=== PATIENT | female | born 1965 | race Caucasian/White ===

== ENCOUNTER 2017-01-24 21:32 | Emergency (ER) | payer OTHER, MEDICAID ==
[~2017-01-24] VITALS: Ht 180.3 cm; Wt 80.7 kg
[~2017-01-24 21:32] MED LIST: CIPR-217 PO; DOCU-94 PO; FER325T PO; GABA-494 PO; MORP60TA25 PO; OMEPRAZOLE PO; PERCOT PO; PRO10T PO; WARF10TA PO
[2017-01-24 22:48] LABS: Basophils # (auto) 0.1 uL; Basophils % (auto) 0.6 % (0.0-2.0); Eosinophils # (auto) 0.1 uL; Eosinophils % (auto) 1.2 % (0.0-7.0); Hematocrit 38.5 % (36.0-46.0); Hemoglobin 12.6 g/dL (12.2-16.2); Lymphocytes # (auto) 2.2 uL; Lymphocytes % (auto) 22.7 % (10.0-50.0); Mean Corpuscular Hemoglobin 32.9 pg (28.0-32.0); Mean Corpuscular Hgb Conc. 32.9 g/dL (32.0-36.0); Mean Corpuscular Volume 99.9 fL (80.0-100.0); Monocytes % (auto) 10.1 % (0.0-12.0); Neutrophils # (auto) 6.2 uL; Neutrophils % (auto) 65.4 % (37.0-80.0); Nucleated Red Blood Cells % 0.3 %; Platelet Count (auto) 416 10^3/uL (140-450); Red Blood Cells 3.85 10^6/uL (4.0-5.20); Red Cell Distribution Width 14.2 % (11.8-14.3); White Blood Cell 9.5 10^3/uL (4.4-10.8)
[2017-01-24 23:06] LABS: INR 1.58 (0.9-1.15); Partial Thromboplastin Time 30.1 sec (22.64-33.71); Prothrombin Time 17.3 sec (9.37-12.3)
[2017-01-24 23:14] LABS: Alanine Aminotransferase 51 U/L (13-56); Albumin 1.9 g/dL (3.4-5.0); Alkaline Phosphatase 132 U/L (45-117); Anion Gap 9 (5-15); Aspartate Aminotransferase 26 U/L (15-37); BUN/Creatinine Ratio 30.6; Bilirubin, Total 0.2 mg/dL (0.2-1.0); Blood Urea Nitrogen 22 mg/dL (7-18); Calcium 7.5 mg/dL (8.5-10.1); Carbon Dioxide 28 mmol/L (21-32); Chloride 104 mmol/L (98-107); GFR African American 109 mL/min; GFR Non-African American 90 mL/min; Glucose 123 mg/dL (74-106); Potassium 3.7 mmol/L (3.5-5.1); Sodium 141 mmol/L (136-145); Total Protein 4.5 g/dL (6.4-8.2)
[2017-01-25 02:10] LABS: Urine Bacteria NONE SEEN /hpf (None Seen); Urine Blood Negative /uL (Negative); Urine Mucus FEW (None Seen); Urine Specific Gravity 1.038 (1.001-1.035); Urine WBC <1 /hpf (0 - 5)
[2017-01-25] MEDS ORDERED: FUROSEMIDE 20 MG/2 ML VIAL IV ONE (02:30)
[2017-01-25 04:09] VITALS: BP 101/70
== END 2017-01-25 06:00 | disposition home or self-care (01) ==
LOC: ER 21:37
DX: I50.9 Heart failure, unspecified (principal); F41.9 Anxiety disorder, unspecified; G89.4 Chronic pain syndrome; G89.29 Other chronic pain; M54.9 Dorsalgia, unspecified; Z90.49 Acquired absence of other specified parts of digestive tract; Z90.89 Acquired absence of other organs; Z79.899 Other long term (current) drug therapy; Z88.6 Allergy status to analgesic agent; Z88.2 Allergy status to sulfonamides; Z88.8 Allergy status to other drugs, medicaments and biological substances
CPT/HCPCS: 36415; 70450; 71010; 80053; 81001; 84484; 85025; 85610; 85730; 93005; 96374; 99285; J1940

== ENCOUNTER 2018-12-02 10:40 | Emergency (ER) | payer OTHER, MEDICAID ==
[~2018-12-02] VITALS: Ht 175.3 cm; Wt 79.4 kg
[~2018-12-02 10:40] MED LIST changes: -CIPR-217 PO; -GABA-494 PO; +GABA100C9 PO
[2018-12-02 11:05] VITALS: BP 108/81
== END 2018-12-02 13:25 | disposition home or self-care (01) ==
LOC: ER 10:40
DX: S00.83XA Contusion of other part of head, initial encounter (principal); I11.0 Hypertensive heart disease with heart failure; I50.9 Heart failure, unspecified; Z90.49 Acquired absence of other specified parts of digestive tract; Z86.711 Personal history of pulmonary embolism; Z88.2 Allergy status to sulfonamides; Z88.6 Allergy status to analgesic agent; Z79.899 Other long term (current) drug therapy; W06.XXXA Fall from bed, initial encounter; Y93.84 Activity, sleeping; Y92.092 Bedroom in other non-institutional residence as the place of occurrence of the external cause; Y99.8 Other external cause status
CPT/HCPCS: 70450

== ENCOUNTER 2021-09-30 17:41 | Inpatient (IN) | payer OTHER, MEDICAID ==
[~2021-09-30] VITALS: Ht 172.7 cm; Wt 70.6 kg
[~2021-09-30 17:41] MED LIST changes: +MORP1TAB14 PO; -MORP60TA25 PO; -PRO10T PO; +PROC10TA2 PO
[2021-09-30 19:47] LABS: Basophils # (auto) 0.1 10 ^3/uL (0-0.2); Basophils % (auto) 1.1 % (0.0-2.0); Eosinophils # (auto) 0.1 10 ^3/uL (0-0.8); Eosinophils % (auto) 1.9 % (0.0-7.0); Hematocrit 34.4 % (36.0-46.0); Hemoglobin 10.8 g/dL (12.2-16.2); Lymphocytes # (auto) 1.6 10 ^3/uL (0.4-5.4); Lymphocytes % (auto) 26.8 % (10.0-50.0); Mean Corpuscular Hemoglobin 31.7 pg (28.0-32.0); Mean Corpuscular Hgb Conc. 31.5 g/dL (32.0-36.0); Mean Corpuscular Volume 100.7 fL (80.0-100.0); Monocytes # (auto) 0.5 10 ^3/uL (0-1.3); Monocytes % (auto) 9.1 % (0.0-12.0); Neutrophils # (auto) 3.7 10 ^3/uL (1.6-8.6); Neutrophils % (auto) 61.1 % (37.0-80.0); Nucleated Red Blood Cells % 0.1 %; Red Blood Cells 3.42 10^6/uL (4.0-5.20); Red Cell Distribution Width 14.9 % (11.8-14.3)
[2021-09-30 20:00] LABS: Calcium 7.6 mg/dL (8.5-10.1); Potassium 5.4 mmol/L (3.5-5.1)
[2021-09-30 20:08] LABS: BUN/Creatinine Ratio 43.1; Bilirubin, Total 0.2 mg/dL (0.2-1.0); Total Protein 4.4 g/dL (6.4-8.2)
[2021-09-30 20:25] LABS: Urine WBC None Seen /hpf (0 - 5)
[2021-09-30] MEDS ORDERED: FUROSEMIDE 20 MG/2 ML VIAL IV ONE (20:30)
[2021-09-30] MEDS ORDERED: SODIUM ZIRCONIUM CYCL 10 GM PAK PO ONE (20:30)
[2021-09-30] MEDS ORDERED: ALBUTEROL SULF 2.5 MG/0.5ML(0.5%) NEB SOLN NEB ONE (20:30)
[2021-09-30] MEDS ORDERED: cloNIDine HCL 0.1 MG TAB PO ONE (20:30)
[2021-09-30] MEDS ORDERED: SODIUM BICARBONATE 8.4% INJ 50ML SYRINGE IV ONE (20:30)
[2021-09-30] MEDS ORDERED: CALCIUM GLUC 1,000mg/50ml-NS 50 ML IV ONE (20:30)
[2021-09-30] MEDS ORDERED: SODIUM CHLORIDE 0.9% 1,000 ML IV ONE (20:30)
[2021-09-30 20:51] LABS: Urine Bacteria NONE SEEN /hpf (None Seen); Urine Blood Negative /uL (Negative); Urine Specific Gravity 1.023 (1.001-1.035)
[2021-10-01 08:26] LABS: Basophils # (auto) 0.1 10 ^3/uL (0-0.2); Eosinophils # (auto) 0.1 10 ^3/uL (0-0.8); Eosinophils % (auto) 2.2 % (0.0-7.0); Hematocrit 30.6 % (36.0-46.0); Hemoglobin 9.9 g/dL (12.2-16.2); Lymphocytes # (auto) 1.8 10 ^3/uL (0.4-5.4); Lymphocytes % (auto) 31.9 % (10.0-50.0); Mean Corpuscular Hemoglobin 32.5 pg (28.0-32.0); Mean Corpuscular Hgb Conc. 32.4 g/dL (32.0-36.0); Mean Corpuscular Volume 100.2 fL (80.0-100.0); Monocytes # (auto) 0.6 10 ^3/uL (0-1.3); Monocytes % (auto) 10.1 % (0.0-12.0); Neutrophils # (auto) 3.1 10 ^3/uL (1.6-8.6); Neutrophils % (auto) 54.8 % (37.0-80.0); Nucleated Red Blood Cells % 0.1 %; Red Blood Cells 3.05 10^6/uL (4.0-5.20); Red Cell Distribution Width 14.5 % (11.8-14.3); White Blood Cell 5.7 10^3/uL (4.4-10.8)
[2021-10-01 08:39] LABS: Albumin 1.7 g/dL (3.4-5.0); Calcium 7.5 mg/dL (8.5-10.1); Potassium 4.8 mmol/L (3.5-5.1)
[2021-10-01 08:42] LABS: Bilirubin, Total 0.2 mg/dL (0.2-1.0); Total Protein 3.9 g/dL (6.4-8.2)
[2021-10-01 12:52] LABS: INR 1.03 (0.9-1.15)
[2021-10-01] MEDS: SODIUM CHLORIDE 0.9% 1,000 ML IV SCH (15:21)
[2021-10-01] MEDS ORDERED: TOPI50TA32 PO (18:51)
[2021-10-01] MEDS ORDERED: BACL20TA PO (18:51)
[2021-10-01] MEDS ORDERED: DICL1GEL EX (18:51)
[2021-10-01] MEDS ORDERED: NAP500T PO (18:51)
[2021-10-01] MEDS ORDERED: FENT25DI2 TD (18:51)
[2021-10-01] MEDS ORDERED: HYDR-4072 PO (18:51)
[2021-10-01] MEDS ORDERED: CHOL20007 PO (18:51)
[2021-10-01] MEDS ORDERED: CALCTAB49 PO (18:51)
[2021-10-01] MEDS ORDERED: SPIR100T4 PO (18:51)
[2021-10-01] MEDS ORDERED: ALEN70SO PO (18:51)
[2021-10-01] MEDS ORDERED: MODA200T73 PO (18:51)
[2021-10-01 19:02] VITALS: BP 151/66
[2021-10-01 22:00] VITALS: BP 115/61
[2021-10-02] MEDS ORDERED: MORPHINE SULFATE INJ 2 MG/ml SYRG IV PRN (02:45)
[2021-10-02 05:00] VITALS: BP 123/78
[2021-10-02 06:05] LABS: Basophils # (auto) 0 10 ^3/uL (0-0.2); Eosinophils # (auto) 0.1 10 ^3/uL (0-0.8); Eosinophils % (auto) 3.1 % (0.0-7.0); Hematocrit 31.9 % (36.0-46.0); Hemoglobin 10.3 g/dL (12.2-16.2); Lymphocytes # (auto) 1.1 10 ^3/uL (0.4-5.4); Mean Corpuscular Hemoglobin 32.5 pg (28.0-32.0); Mean Corpuscular Hgb Conc. 32.2 g/dL (32.0-36.0); Mean Corpuscular Volume 100.8 fL (80.0-100.0); Monocytes # (auto) 0.5 10 ^3/uL (0-1.3); Monocytes % (auto) 9.6 % (0.0-12.0); Neutrophils % (auto) 63.3 % (37.0-80.0); Red Blood Cells 3.16 10^6/uL (4.0-5.20); Red Cell Distribution Width 14.6 % (11.8-14.3); White Blood Cell 4.8 10^3/uL (4.4-10.8)
[2021-10-02 06:09] LABS: Calcium 7.5 mg/dL (8.5-10.1); Potassium 5.2 mmol/L (3.5-5.1)
[2021-10-02 06:15] LABS: Albumin 1.7 g/dL (3.4-5.0); BUN/Creatinine Ratio 30.8; Bilirubin, Total 0.2 mg/dL (0.2-1.0); Total Protein 4.1 g/dL (6.4-8.2)
[2021-10-02] MEDS: SODIUM CHLORIDE 0.9% 1,000 ML IV SCH ×2 (07:10→23:50)
[2021-10-02] MEDS: ENOXAPARIN SOD 40 MG/0.4 ML SYRINGE SC SCH (08:38)
[2021-10-02 09:22] VITALS: BP 122/66
[2021-10-02 13:00] VITALS: BP 115/65
[2021-10-02 16:49] VITALS: BP 122/73
[2021-10-02 22:00] VITALS: BP 132/86
[2021-10-03 05:00] VITALS: BP 110/78
[2021-10-03 09:00] VITALS: BP 130/77
[2021-10-03] MEDS: ENOXAPARIN SOD 40 MG/0.4 ML SYRINGE SC SCH (10:53)
[2021-10-03 12:30] VITALS: BP 122/78
[2021-10-03] MEDS: SODIUM CHLORIDE 0.9% 1,000 ML IV SCH (16:30)
[2021-10-03 17:00] VITALS: BP 130/73
[2021-10-03 20:29] VITALS: BP 114/72
[2021-10-03 22:00] VITALS: BP 119/71
[2021-10-04 05:00] VITALS: BP 110/71
[2021-10-04 08:00] VITALS: BP 117/76
[2021-10-04 09:00] VITALS: BP 117/76
[2021-10-04] MEDS: SODIUM CHLORIDE 0.9% 1,000 ML IV SCH (09:10)
[2021-10-04] MEDS: ENOXAPARIN SOD 40 MG/0.4 ML SYRINGE SC SCH (10:16)
[2021-10-04 13:00] VITALS: BP 121/74
[2021-10-04 16:35] VITALS: BP 115/64
[2021-10-04 22:00] VITALS: BP 113/74
[2021-10-05] MEDS: SODIUM CHLORIDE 0.9% 1,000 ML IV SCH (01:50)
[2021-10-05 05:00] VITALS: BP 101/71
[2021-10-05 08:00] VITALS: BP 118/67
[2021-10-05 09:00] VITALS: BP 106/64
[2021-10-05] MEDS: ENOXAPARIN SOD 40 MG/0.4 ML SYRINGE SC SCH (10:00)
[2021-10-05 13:00] VITALS: BP 118/67
[2021-10-05 17:00] VITALS: BP 120/74
== END 2021-10-05 20:30 | DRG 563 ==
LOC: ER 17:41 → OVERFLOW 10-01 14:33 → CENTRAL 10-01 17:25
PROVIDERS: ADMIT Internal Medicine; ATTEND Internal Medicine
DX: S42.301A Unspecified fracture of shaft of humerus, right arm, initial encounter for closed fracture (principal); F03.90 Unspecified dementia, unspecified severity, without behavioral disturbance, psychotic disturbance, mood disturbance, and anxiety; I95.9 Hypotension, unspecified; E83.51 Hypocalcemia; D64.9 Anemia, unspecified; G89.4 Chronic pain syndrome; I11.0 Hypertensive heart disease with heart failure; I50.9 Heart failure, unspecified; R29.6 Repeated falls; M21.921 Unspecified acquired deformity of right upper arm; R62.7 Adult failure to thrive; F41.9 Anxiety disorder, unspecified; G62.9 Polyneuropathy, unspecified; K21.9 Gastro-esophageal reflux disease without esophagitis; Z20.822 Contact with and (suspected) exposure to COVID-19; W18.39XA Other fall on same level, initial encounter; E87.5 Hyperkalemia; Z79.01 Long term (current) use of anticoagulants; Z88.2 Allergy status to sulfonamides; Z88.5 Allergy status to narcotic agent; Z88.8 Allergy status to other drugs, medicaments and biological substances; Z79.899 Other long term (current) drug therapy; Z80.3 Family history of malignant neoplasm of breast; Z81.8 Family history of other mental and behavioral disorders; Z82.3 Family history of stroke; Z82.49 Family history of ischemic heart disease and other diseases of the circulatory system; Z82.5 Family history of asthma and other chronic lower respiratory diseases; Z86.73 Personal history of transient ischemic attack (TIA), and cerebral infarction without residual deficits; Z98.84 Bariatric surgery status; Z94.9 Transplanted organ and tissue status, unspecified; Y93.89 Activity, other specified; Y92.098 Other place in other non-institutional residence as the place of occurrence of the external cause; Y99.8 Other external cause status
CPT/HCPCS: 36415; 70450; 71045; 72125; 73030; 73070; 73200; 80053; 81001; 84484; 85025; 85610; 94640; 96365; 96375; 97163; 99291; G0378

== ENCOUNTER 2022-07-29 15:34 | Emergency (ER) | payer OTHER ==
[~2022-07-29] VITALS: Ht 172.7 cm; Wt 78.2 kg
[~2022-07-29 15:34] MED LIST changes: +ALEN70SO PO; +BACL20TA PO; +CALCTAB49 PO; +CHOL20007 PO; +DICL1GEL EX; +FENT25DI2 TD; +HYDR-4072 PO; +MODA200T73 PO; -MORP1TAB14 PO; +NAP500T PO; -PERCOT PO; -PROC10TA2 PO; +SPIR100T4 PO; +TOPI50TA32 PO; -WARF10TA PO
[2022-07-29] MEDS ORDERED: HYDROmorphone HCL 2 MG/ML VL/or syr IM ONE (18:00)
[2022-07-29 21:20] VITALS: BP 105/66
== END 2022-07-29 21:21 | disposition home or self-care (01) ==
LOC: ER 15:34
DX: S42.401A Unspecified fracture of lower end of right humerus, initial encounter for closed fracture (principal); M54.59 Other low back pain; R07.81 Pleurodynia; I11.0 Hypertensive heart disease with heart failure; I50.9 Heart failure, unspecified; F41.9 Anxiety disorder, unspecified; Z86.711 Personal history of pulmonary embolism; Z88.5 Allergy status to narcotic agent; Z88.2 Allergy status to sulfonamides; Z88.8 Allergy status to other drugs, medicaments and biological substances; W01.198A Fall on same level from slipping, tripping and stumbling with subsequent striking against other object, initial encounter; Y93.89 Activity, other specified; Y92.89 Other specified places as the place of occurrence of the external cause; Y99.8 Other external cause status
CPT/HCPCS: 71101; 72100; 73030; 73060; 73080; 73090; 96372; 99284; J1170; 29105

== ENCOUNTER 2022-09-07 22:46 | Emergency (ER) | payer OTHER ==
[~2022-09-07] VITALS: Ht 172.7 cm; Wt 165.0 kg
[~2022-09-07 22:46] MED LIST changes: -ALEN70SO PO; +ALEN70SO2 PO; +GABA-1308 PO; -GABA100C9 PO
[2022-09-08] MEDS ORDERED: ACETAMINOPHEN 325 MG TAB PO ONE (05:45)
[2022-09-08 06:47] LABS: Basophils # (auto) 0 10 ^3/uL (0-0.2); Basophils % (auto) 0.6 % (0.0-2.0); Eosinophils # (auto) 0 10 ^3/uL (0-0.8); Eosinophils % (auto) 1.3 % (0.0-7.0); Hematocrit 37.6 % (36.0-46.0); Hemoglobin 12.3 g/dL (12.2-16.2); Lymphocytes # (auto) 0.7 10 ^3/uL (0.4-5.4); Lymphocytes % (auto) 19.8 % (10.0-50.0); Mean Corpuscular Hemoglobin 30.1 pg (28.0-32.0); Mean Corpuscular Hgb Conc. 32.8 g/dL (32.0-36.0); Monocytes # (auto) 0.3 10 ^3/uL (0-1.3); Monocytes % (auto) 9.7 % (0.0-12.0); Neutrophils # (auto) 2.5 10 ^3/uL (1.6-8.6); Neutrophils % (auto) 68.6 % (37.0-80.0); Red Blood Cells 4.09 10^6/uL (4.0-5.20); Red Cell Distribution Width 14.3 % (11.8-14.3); White Blood Cell 3.6 10^3/uL (4.4-10.8)
[2022-09-08 07:05] LABS: Calcium 8.1 mg/dL (8.5-10.1); Potassium 3.9 mmol/L (3.5-5.1)
[2022-09-08 07:12] LABS: Albumin 3.1 g/dL (3.4-5.0); Bilirubin, Total 0.4 mg/dL (0.2-1.0); Total Protein 6.8 g/dL (6.4-8.2)
[2022-09-08] MEDS ORDERED: CYCLOBENZAPRINE HCL 10 MG TAB PO ONE (07:15)
[2022-09-08] MEDS ORDERED: KETOROLAC TROMETH 30 MG/ML 1ML VIAL IV ONE (07:15)
[2022-09-08 08:50] LABS: Urine Bacteria NONE SEEN /hpf (None Seen); Urine Blood Negative /uL (Negative); Urine Mucus FEW (None Seen); Urine Specific Gravity 1.017 (1.001-1.035); Urine WBC <1 /hpf (0 - 5)
[2022-09-08 10:20] VITALS: BP 138/75
== END 2022-09-08 10:21 | disposition home or self-care (01) ==
LOC: ER 22:46
DX: G89.29 Other chronic pain (principal); M54.59 Other low back pain; F41.9 Anxiety disorder, unspecified; I11.0 Hypertensive heart disease with heart failure; I50.89 Other heart failure; Z98.890 Other specified postprocedural states; Z88.5 Allergy status to narcotic agent; Z88.2 Allergy status to sulfonamides; Z88.8 Allergy status to other drugs, medicaments and biological substances; Z90.49 Acquired absence of other specified parts of digestive tract; Z90.89 Acquired absence of other organs
CPT/HCPCS: 36415; 72132; 80053; 81001; 85025; 96374; 99285; J1885

== ENCOUNTER 2023-08-31 06:51 | Emergency (ER) | payer OTHER, MEDICAID ==
[~2023-08-31] VITALS: Ht 172.7 cm; Wt 72.0 kg
[2023-08-31 07:33] VITALS: BP 119/85; PULSE 85; RESP 20; TEMP 98.5; O2SAT 98
[2023-08-31] MEDS: diphenhdrAMINE HCL 50 MG/1 ML VL IV ONE (08:45)
[2023-08-31] MEDS: KETOROLAC TROMETH 30 MG/ML 1ML VIAL IV ONE (08:45)
[2023-08-31] MEDS: PROCHLORPERAZINE EDISYLATE 5 MG/ML 2ML VIAL IV ONE (08:45)
[2023-08-31] MEDS: SODIUM CHLORIDE 0.9% 1,000 ML IV ONE (08:55)
[2023-08-31] MEDS: DexAMETHasone SOD PHOS 10MG/1ML VIAL INJ IV ONE (10:15)
[2023-08-31] MEDS ORDERED: MAGN400T40 PO (10:16)
== END 2023-08-31 10:56 | disposition home or self-care (01) ==
LOC: ER 06:51
DX: G43.909 Migraine, unspecified, not intractable, without status migrainosus (principal); H11.32 Conjunctival hemorrhage, left eye; M19.90 Unspecified osteoarthritis, unspecified site; F41.9 Anxiety disorder, unspecified; I11.0 Hypertensive heart disease with heart failure; I50.9 Heart failure, unspecified; Z90.49 Acquired absence of other specified parts of digestive tract; Z90.89 Acquired absence of other organs
CPT/HCPCS: 70450; 96361; 96374; 96375; 99285; J0780; J1100; J1200; J1885; J7030

== ENCOUNTER 2024-03-15 16:53 | Inpatient (IN) | payer OTHER, MEDICAID ==
[~2024-03-15] VITALS: Ht 175.3 cm; Wt 80.1 kg
[~2024-03-15 16:53] MED LIST changes: +MAGN400T40 PO
--- NOTE | 2024-03-15 17:39 | ED.PDOC ---
HPI (NEURO) HPI Comments 58y F who presents to the ED via EMS for chief complaint of confusion. Per pt, pt states she woke up in the afternoon approx 1:30 PM and states felt confused and was unable to have a conversation with her son and states she was unable to answer simple questions. Pt son got worried and noted pt started to get chills and felt she was having trouble communicating and called pt daughters and states they told son to call EMS. EMS arrived on scene and after doing EKG, found it was abnormal with tachycardia and PVC's and brought pt to the ED. Pt in the ED, has heart rate of 145 and pt is noted to be febrile. Pt is now in the ED, noted alert and oriented x 4 and able to answer all questions and now denies any changes in vision, speech or gait. Pt otherwise denies any recent fall or injury. Pt otherwise denies any other symptoms at this time. Chief Complaint: Confusion Time Seen by MD: 17:34 Primary Care Provider: FÉLIX Dickerson Notes: Institution Librarian Notes, Medications, Allergies (see list ) Information Source: Patient Mode of Arrival: EMS Brought in by: EMS Severity: Moderate Dizziness/Weakness Severity: Unable to do activities Headache Severity: Moderate Timing: Hours Duration: Since onset Prehospital treatment: None Weakness Location: Generalized Onset: At rest Circumstances: Spontaneous Symptoms: Weakness, Difficult speech History of: Hypertension Modifying factors: Nothing Associated Signs and Symptoms: Weakness Past Medical History PAST MEDICAL HISTORY: Anxiety, Arthritis, CHF, HTN, PE Surgical History: Appendectomy, Cholecystectomy, Tonsillectomy Surgical History (Other): lumbar fusion, R knee surgery WET PAN OPERATOR History: No Pertinent WET PAN OPERATOR History Family History Family History: No family hx of HTN Social History Smoker: Non-Smoker Alcohol: Rarely Drugs: Denies Drug Use Lives In: Home Constitutional: denies: chills, diaphoresis, fatigue, fever, malaise, sweats, weakness, others EENTM: denies: blurred vision, double vision, ear bleeding, ear discharge, ear drainage, ear pain, ear ringing, eye pain, eye redness, hearing loss, mouth pain, mouth swelling, nasal discharge, nose bleeding, nose congestion, nose pain, photophobia, tearing, throat pain, throat swelling, voice changes, others Respiratory: denies: cough, hemoptysis, orthopnea, SOB at rest, shortness of breath, SOB with excertion, stridor, wheezing, others Cardiovascular: denies: chest pain, dizzy spells, diaphoresis, Dyspnea on exertion, edema, irregular heart beat, left arm pain, lightheadedness, palpitations, PND, syncope, others Gastrointestinal: denies: abdomen distended, abdominal pain, blood streaked bowels, constipated, diarrhea, dysphagia, difficulty swallowing, hematemesis, melena, nausea, poor appetite, poor fluid intake, rectal bleeding, rectal pain, vomiting, others Genitourinary: denies: abnormal vagina bleeding, burning, dyspareunia, dysuria, flank pain, frequency, hematuria, incontinence, pain, , vagina discharge, urgency, others Neurological: reports: weakness; denies: dizziness, fainting, headache, left sided numbness, left sided weakness, numbness, paresthesia, pre-existing deficit, right sided numbness, right sided weakness, seizure, speech problems, tingling, tremors, others Musculoskeletal: denies: back pain, gout, joint pain, joint swelling, muscle pain, muscle stiffness, neck pain, others Integumetry: denies: bruises, change in color, change in hair/nails, dryness, laceration, lesions, lumps, rash, wounds, others Allergic/Immunocompromised: denies: Difficulty Healing, Frequent Infections, Hives, Itching, others Hematologic/Lymphatic: denies: anemia, blood clots, easy bleeding, easy bruising, swollen glands, others Endocrine: denies: excessive hunger, excessive sweating, excessive thirst, excessive urination, flushing, intolerance to cold, intolerance to heat, unexplained weight gain, unexplained weight loss, others Psychiatric: denies: anxiety, bipolar disorder, depression, hopeless, panic disorder, schizophrenia, sleepless, suicidal, others All Other Systems: Reviewed and Negative Physical Exam General Appearance: Moderate Distress HEENT: Normal ENT Inspection, Pharynx Normal, TMs Normal Neck: Full Range of Motion, Non-Tender, Normal, Normal Inspection Respiratory: Chest Non-Tender, No Accessory Muscle Use, Respiratory Distress, Rhonchi Cardiovascular: No Edema, No JVD, No Murmur, No Gallop, Normal Peripheral Pulses, Regular Rate/Rhythm Breast Exam: Deferred Gastrointestinal: No Organomegaly, Non Tender, No Pulsatile Mass, Normal Bowel Sounds, Soft Genitalia: Deferred Pelvic: Deferred Rectal: Deferred Extremities: No calf tenderness, Normal capillary refill, Normal inspection, Normal range of motion, Non-tender, No pedal edema Musculoskeletal : Location: Bilateral Extremity Location: Back Apperance: Limited ROM, Tenderness: Moderate Neurologic: Alert, burnisher II-XII nml as Tested, Motor Weakness, Normal Affect, Normal Mood, No Sensory Deficits Cerebellar Function: Normal Reflexes: Normal Skin: Dry, Normal Color, Warm Lymphatic: No Adenopathy EKG EKG : Pulse Rate (adult): 120 [place]: Normal Cardiac Rhythm: ST Block: None Hypertrophy: None ST: Normal Was a procedure done? Was a procedure done?: No Differential Diagnosis (SZ) CVA: CVA, Electrolyte Imbalance, Encephalopathy, Hypoglycemia, SAH, TIA General Weakness: Anemia, CVA, Electrolyte imbalance, Encephalopathy, Hypoglycemia, Hypotension, Hypovolemia, TIA, Vertigo: central, Vertigo: peripheral X-Ray, Labs, Meds, VS Vital Signs Date Time Temp Pulse Resp B/P (MAP) Pulse Ox O2 Delivery O2 Flow Rate FiO2 03/15/24 20:00 120 22 103/62 (76) 91 03/15/24 18:05 129 21 94 Nasal Cannula* 2 28 03/15/24 18:00 99.6 122 18 111/68 (82) 94 99.6 03/15/24 17:50 120 03/15/24 17:45 129 03/15/24 17:43 102.3 126 22 120/88 (99) 95 102.3 03/15/24 16:57 100.5 145 22 135/110 (118) 95 03/15/24 16:57 139 Lab Test 03/15/24 18:03 Range/Units White Blood Count 13.6 H 4.4-10.8 10^3/uL Red Blood Count 4.53 4.0-5.20 10^6/uL Hemoglobin 13.8 12.2-16.2 g/dL Hematocrit 42.1 36.0-46.0 % Mean Corpuscular Volume 93.1 80.0-100.0 fL Mean Corpuscular Hemoglobin 30.4 28.0-32.0 pg Mean Corpuscular Hemoglobin Concent 32.6 32.0-36.0 g/dL Red Cell Distribution Width 14.5 H 11.8-14.3 % Platelet Count 299 140-450 10^3/uL Mean Platelet Volume 8.7 6.9-10.8 fL Neutrophils (%) (Auto) 37.0-80.0 % Lymphocytes (%) (Auto) 10.0-50.0 % Monocytes (%) (Auto) 0.0-12.0 % Basophils (%) (Auto) 0.0-2.0 % Neutrophils # (Auto) 1.6-8.6 10 ^3/uL Lymphocytes # (Auto) 0.4-5.4 10 ^3/uL Monocytes # (Auto) 0-1.3 10 ^3/uL Differential Total Cells Counted 100.0 100 Neutrophils % (Manual) 67 37.0-80.0 Band Neutrophils % (Manual) 26 Lymphocytes % (Manual) 3 L 10.0-50.0 Monocytes % (Manual) 4 0-12 Eosinophils % (Manual) 0 0-7 Basophils % (Manual) 0 0.0-2.0 Metamyelocytes % (manual) 0 Myelocytes % (Manual) 0 Promyelocytes % (Manual) 0 Blast Cells % (Manual) 0 Reactive Lymphocytes 0 Platelet Estimate Adequate Red Blood Cell Morphology Normal Sodium Level 142 136-145 mmol/L Potassium Level 3.6 3.5-5.1 mmol/L Chloride Level 112 H 98-107 mmol/L Carbon Dioxide Level 19 L 20-31 mmol/L Anion Gap 11 5-15 Blood Urea Nitrogen 27 H 9-23 mg/dL Creatinine 0.60 0.550-1.02 mg/dL Glomerular Filtration Rate Calc 103 >90 mL/min BUN/Creatinine Ratio 45.0 H 10.0-20.0 Serum Glucose 106 74-106 mg/dL Lactic Acid Level 0.9 0.4-2.0 mmol/L Calcium Level 9.2 8.7-10.4 mg/dL Plasma/Serum Blood Alcohol < 3.0 <10 mg/dL Current Medications Medications (Trade) Dose Ordered Sig/Debi Route Start Time Stop Time Status Last Admin Vancomycin HCl 250 ml @ 250 mls/hr ONCE ONCE IV 03/15/24 19:30 03/15/24 20:29 DC 03/15/24 19:51 IV Hep-Lock was established The chest x-ray shows: IMPRESSION: Patchy opacification in the right lower lung zone with potential focal central area of low opacification. This is likely due to developing airspace disease and less likely complex infection involving potential pulmonary abscess. Left lung is clear. No pneumothorax. Chronic appearing deformity of the right humeral head. CT scan of the head shows: No sign of any abnormalities The CT scan of the chest shows: Impression: 1. Multifocal groundglass opacities favor an infectious/inflammatory etiology versus atelectasis. The patient was started on vancomycin and azithromycin The CBC shows an elevated white blood cell count of 13.6 The rest of the CBC is within normal limits The chemistry panel is within normal limits We spoke to the [facility] physician and he will come and evaluate this patient's The patient will be signed over to him for final disposition. Images Reviewed?: Images reviewed and evaluated by me Time of 1ST Reevaluation: 18:05 Reevaluation 1ST: Unchanged Patient Education/Counseling: Diagnosis, Treatment, Prognosis Family Education/Counseling: No Family Present Additional Information I reviewed the following notes from patient's past medical encounters: The following tests were ordered, and results were reviewed by me: CBC, UA, chest x-ray, CT head without contrast, orthostatics, EKG, blood alcohol, BMP Additional Information was gathered from interviewing the following independent historians: EMS I reviewed and agreed with the following test results read by other providers: radiologist I discussed treatment and results with medical personnel and: patient Departure 1 Departure Time of Disposition: 21:38 Impression: Primary Impression: Acute respiratory failure Qualified Codes: J96.01 - Acute respiratory failure with hypoxia Additional Impression: Bilateral pneumonia Qualified Codes: J18.9 - Pneumonia, unspecified organism Disposition: ADMITTED INPATIENT Admit to: Tele Condition: Fair Critical Care Note Critical Care Time?: Yes (35 min-critical care time only) Stability Stability form required: Yes Unstable for transfer: Telemetry monitoring (Telemetry monitoring required), ED Physician Assesment (Clinical assesment) Heart Score Heart Score: Heart Score Response (Comments) Value History N/A 0 EKG N/A 0 Age N/A 0 Risk Factors N/A 0 Troponin N/A 0 Total 0 I personally scribed for LEVON GARCIA MD ([email or web address]) on 03/15/24 at 17:39. Electronically submitted by Tracy Eugene ([email or web address]). I personally scribed for LEVON GARCIA MD ([email or web address]) on 03/15/24 at 17:50. Electronically submitted by Tracy Eugene (KJ). LEVON GARCIA MD Mar 15, 2024 17:39
[2024-03-15 18:05] VITALS: PULSE 129; RESP 21; O2SAT 94
--- NOTE | 2024-03-15 18:57 | DVH ---
CHEST RADIOGRAPH Indication: aloc Technique: Single frontal view of the chest was obtained Comparison: CXRP on DOS: 09/30/21, CHEST PORTABLE on DOS: 09/30/21 Findings/ IMPRESSION: Patchy opacification in the right lower lung zone with potential focal central area of low opacificat ion. This is likely due to developing airspace disease and less likely complex infection involving po tential pulmonary abscess. Left lung is clear. No pneumothorax. Chronic appearing deformity of the ri ght humeral head.
[2024-03-15 19:04] LABS: Hematocrit 42.1 % (36.0-46.0); Hemoglobin 13.8 g/dL (12.2-16.2); Mean Corpuscular Hemoglobin 30.4 pg (28.0-32.0); Mean Corpuscular Hgb Conc. 32.6 g/dL (32.0-36.0); Mean Corpuscular Volume 93.1 fL (80.0-100.0); Platelet Count (auto) 299 10^3/uL (140-450); Red Blood Cells 4.53 10^6/uL (4.0-5.20); Red Cell Distribution Width 14.5 % (11.8-14.3); White Blood Cell 13.6 10^3/uL (4.4-10.8)
--- NOTE | 2024-03-15 19:05 | DVH ---
EXAM: CT HEAD WITHOUT CONTRAST HISTORY: aloc COMPARISON: CT HEAD WITHOUT CONTRAST on DOS: 08/31/23, CT LS SPINE W CONTRAST on DOS: 09/08/22, CT R SLAVA ULDER WO CONTRAST on DOS: 10/01/21 TECHNIQUE: Axial images were obtained and reformatted in coronal and sagittal planes. All CT scans at this medical facility are performed using dose modulation techniques as appropriate t o a performed exam including the following: Automated exposure control was utilized; adjustment of th e MA and/or KV according to patient size; and use of iterative reconstruction technique. CT Dose: CTDI volume is 49.61 mGy. Dose-length product is 795.5 mGy*cm FINDINGS: Supratentorial Region: No evidence for large acute territorial ischemia. No intracranial hemorrhage is noted. Posterior Fossa: No acute abnormality. Brainstem: Unremarkable. Sellar/Suprasellar Region: Unremarkable. Ventricles, Cisterns, Sulci: Age-appropriate. Orbits: Unremarkable. Paranasal Sinuses: Unremarkable. Mastoid Air Cells: Unremarkable. Vasculature: Unremarkable. Bones/Soft Tissues: No acute abnormality. Other: None. IMPRESSION: 1. No acute intracranial process.
[2024-03-15 19:13] LABS: Basophils % (manual) 0 (0.0-2.0); Blast Cells 0; Eosinophils % (manual) 0 (0-7); Metamyelocytes % 0; Myelocytes % 0; Promyelocytes % 0; Reactive Lymphocytes 0
[2024-03-15 19:32] LABS: Calcium 9.2 mg/dL (8.7-10.4); Potassium 3.6 mmol/L (3.5-5.1); Sodium 142 mmol/L (136-145)
[2024-03-15 19:33] LABS: Anion Gap 11 (5-15)
[2024-03-15 19:38] LABS: Glucose 106 mg/dL (74-106)
[2024-03-15 19:41] LABS: Blood Alcohol < 3.0 mg/dL (<10); Blood Urea Nitrogen 27 mg/dL (9-23); Carbon Dioxide 19 mmol/L (20-31); Chloride 112 mmol/L (98-107)
[2024-03-15 19:51] LABS: Band Neutrophils % (manual) 26; Lymphocytes % (manual) 3 (10.0-50.0); Monocytes % (manual) 4 (0-12); Platelet Estimate Adequate; RBC Morphology Normal
[2024-03-15] MEDS: VANCOMYCIN 1GM/250ML KIT 250 ML IV ONE (19:51)
[2024-03-15 20:00] VITALS: PULSE 120; RESP 22; O2SAT 91
--- NOTE | 2024-03-15 21:29 | DVH ---
EXAM: CT CHEST WITHOUT CONTRAST History: pain Comparison Study: CT HEAD WITHOUT CONTRAST on DOS: 03/15/24, CT HEAD WITHOUT CONTRAST on DOS: 08/31/23, CT R SHOULDER WO CONTRAST on DOS: 10/01/21 TECHNIQUE: Multidetector CT of the chest was performed. Imaging was performed without IV contrast. Ax ial, coronal, and sagittal multiplanar reformats were obtained from the axial data set by the technol ogist. Radiation Dose : CTDI vol 12.15 mGy, DLP 423.55 mGy*cm. Findings: Lungs: Bilateral lower lobe and inferior right upper lobe groundglass opacities. Pleura: Unremarkable Heart/Great vessels: The visualized heart is unremarkable. No cardiomegaly or pericardial effusion. Mediastinum: Unremarkable Soft tissues/Bones: Unremarkable Cholecystectomy. Postsurgical changes of the stomach. The remaining partially visualized upper abdome n is within normal limits. Impression: 1. Multifocal groundglass opacities favor an infectious/inflammatory etiology versus atelectasis.
[2024-03-15 22:14] LABS: Urine Bacteria None Seen /hpf (None Seen)
[2024-03-15] MEDS ORDERED: DOCUSATE SOD 100 MG CAP PO PRN (22:30)
[2024-03-15] MEDS ORDERED: ONDANSETRON HCL 4 MG/2 ML VIAL IV PRN (22:30)
[2024-03-15] MEDS ORDERED: ACETAMINOPHEN 325 MG TAB PO PRN (22:30)
[2024-03-15] MEDS ORDERED: MORPHINE SULFATE INJ 2 MG/ml SYRG IV PRN (22:30)
[2024-03-15] MEDS ORDERED: NITROGLYCERIN 0.4 MG SL TAB SL PRN (22:30)
[2024-03-15] MEDS: SODIUM CHLORIDE 0.9% 1,000 ML IV ONE (22:47)
[2024-03-15 23:08] LABS: Urine Blood Negative /uL (Negative); Urine Clarity Turbid (Clear); Urine Color Yellow (Yellow); Urine Hyaline Cast FEW /lpf (0 - 2); Urine Mucus FEW (None Seen); Urine Protein, UAD TRACE (Negative); Urine Specific Gravity 1.034 (1.001-1.035); Urine Urobilinogen 2 mg/dL (Negative); Urine WBC 3 /hpf (0 - 5)
[2024-03-15] MEDS: levoFLOXacin 500MG 100 ML IV ONE (23:25)
[2024-03-15 23:38] LABS: COVID19 ANTIGEN SOFIA FIA NEGATIVE (NEGATIVE)
[2024-03-15] MEDS: cefTRIAXone 1GM/50ML D5W 50 ML IV ONE (23:52)
[2024-03-16] VITALS (15 sets, daily range): BP systolic 93; BP diastolic 66; PULSE 77–105; RESP 14–19; O2SAT 78–99
[2024-03-16] MEDS: AZITHROMYCIN 500MG/ 250ML 250 ML IV ONE (01:35)
[2024-03-16] MEDS: IPRATROPIUM BROM 0.5 MG/2.5ML INH SOL NEB SCH (01:48)
[2024-03-16] MEDS: ALBUTEROL SULF 2.5 MG/0.5ML(0.5%) NEB SOLN NEB SCH (01:49)
--- NOTE | 2024-03-16 02:04 | DVHHP2 ---
PATRICK RANKIN STEWARD/STEWARDESS BATH 03/16/24 0204: History of Present Illness Reason for Visit: AMS History of Present Illness 58-year-old female presents with complaints of alter mental status, Fevers, chills. EMS was called because the patient was confused And unable to hold a conversation with family members.. Found To be febrile With elevated heart rate in the 140s. In route to the hospital patient was also found to be hypoxic Requiring supplemental oxygen 4lnc to Maintain oxygen saturation 94%.. At this time patient is alert and oriented x3. Patient denies any Unilateral deficits, headaches, slurred speech, Chest pain, nausea, vomiting, Abdominal pain Cardiovascular: CHF Pulmonary: Pulmonary embolus Psych: Anxiety, Bipolar, Depression Smoke: No ALCOHOL: none Drugs: None Lives: with Family Review of Systems Constitutional: Yes: Fever, Chills, Weakness Eyes: No: Pain, Vision change, Conjunctivae inflammation, Eyelid inflammation, Other, Redness ENT: No: Ear pain, Ear discharge, Nose pain, Nose discharge, Nose congestion, Mouth pain, Mouth swelling, Throat pain, Throat swelling, Other Respiratory: Shortness of breath; No: Cough, Dry, SOB with excertion, Wheezing, Hemoptysis, Pleuritic Pain, Sputum, Wheezing, Other Cardiovascular: No: Chest Pain, Palpitations, Orthopnea, Paroxysmal Noc. Dyspnea, Edema, Lt Headedness, Other Gastrointestinal: No: Nausea, Vomiting, Abdominal Pain, Diarrhea, Constipation, Melena, Hematochezia, Other Genitourinary: No Dysuria, No Frequency, No Incontinence, No Hematuria, No Retention, No Other Musculoskeletal: No: other, neck pain, shoulder pain, arm pain, back pain, hand pain, leg pain, foot pain Skin: No: Rash, Lesions, Jaundice, Bruising, Other Neurological: Confusion; No: Weakness, Numbness, Incoordination, Change in speech, Seizures, Other Allergies: Coded Allergies: Codeine (Verified Allergy, Severe, RASH, 08/05/14) Meperidine (Verified Allergy, Severe, RASH, 08/07/14) Sulfa Antibiotics (Verified Allergy, Intermediate, RASH, 08/04/15) Propoxyphene (Verified Allergy, Unknown, 02/01/15) Medications Current Medications Medications Dose Ordered Sig/Debi Route Start Time Stop Time Status Last Admin Dose Admin Docusate Sodium 100 mg BIDPRN PRN PO 03/15/24 22:30 Acetaminophen 650 mg Q6HP PRN PO 03/15/24 22:30 Ondansetron HCl 4 mg Q4HP PRN IV 03/15/24 22:30 Enoxaparin Sodium 40 mg DAILY SC 03/16/24 10:00 Nitroglycerin 0.4 mg Q5MINP PRN SL 03/15/24 22:30 Morphine Sulfate 2 mg Q30M PRN IV 03/15/24 22:30 Levofloxacin/ Dextrose 100 ml @ 100 mls/hr DAILY IV 03/16/24 10:00 Oxycodone/ Acetaminophen 1 tab Q4HPRN PRN PO 03/15/24 22:30 Albuterol 2.5 mg Q4HR NEB 03/16/24 02:00 03/16/24 01:49 2.5 MG Ipratropium [place] 0.5 mg Q4HR NEB 03/16/24 02:00 03/16/24 01:48 0.5 MG Exam Vital Signs Vital Signs Date Time Temp Pulse Resp B/P (MAP) Pulse Ox O2 Delivery O2 Flow Rate FiO2 03/16/24 01:49 97 Nasal Cannula 2.0 03/16/24 01:49 28 03/16/24 01:49 77 14 03/16/24 00:45 93/66 03/15/24 18:00 99.6 99.6 General Appearance: Alert, Oriented X3, Cooperative, mild distress HEENT: Atraumatic, PERRLA, EOMI Respiratory: Normal air movement, Other (Right lower lobe rales / crackles) Cardiovascular: Regular rate, Normal S1, Normal S2 Abdominal: Normal bowel sounds, Soft, No tenderness Extremities: No clubbing, No cyanosis, No edema Skin: No rashes Neuro: Normal speech, Strength at 5/5 X4 ext Psych/Mental Status: Mental status NL, Mood NL Labs/Xrays Labs Test 03/15/24 22:47 03/15/24 21:06 03/15/24 18:03 Range/Units SARS-CoV-2 Antigen (Rapid) Negative NEGATIVE Urine Color Yellow Yellow Urine Clarity Turbid H Clear Urine pH 5.0 5.0-9.0 Urine Specific [place] 1.034 1.001-1.035 Urine Protein Trace H Negative Urine Ketones Trace Negative Urine Blood Negative Negative /uL Urine Nitrite Negative Negative Urine Bilirubin Negative Negative Urine Urobilinogen 2 H Negative mg/dL Urine Leukocyte Esterase Trace Negative /uL Urine RBC 2 0 - 4 /hpf Urine WBC 3 0 - 5 /hpf Urine Squamous Epithelial Cells Few <5 /hpf Urine Bacteria None seen None Seen /hpf Urine Hyaline Casts Few 0 - 2 /lpf Urine Mucus Few None Seen Urine Glucose Normal Normal mg/dL White Blood Count 13.6 H 4.4-10.8 10^3/uL Red Blood Count 4.53 4.0-5.20 10^6/uL Hemoglobin 13.8 12.2-16.2 g/dL Hematocrit 42.1 36.0-46.0 % Mean Corpuscular Volume 93.1 80.0-100.0 fL Mean Corpuscular Hemoglobin 30.4 28.0-32.0 pg Mean Corpuscular Hemoglobin Concent 32.6 32.0-36.0 g/dL Red Cell Distribution Width 14.5 H 11.8-14.3 % Platelet Count 299 140-450 10^3/uL Mean Platelet Volume 8.7 6.9-10.8 fL Neutrophils (%) (Auto) 37.0-80.0 % Lymphocytes (%) (Auto) 10.0-50.0 % Monocytes (%) (Auto) 0.0-12.0 % Basophils (%) (Auto) 0.0-2.0 % Neutrophils # (Auto) 1.6-8.6 10 ^3/uL Lymphocytes # (Auto) 0.4-5.4 10 ^3/uL Monocytes # (Auto) 0-1.3 10 ^3/uL Differential Total Cells Counted 100.0 100 Neutrophils % (Manual) 67 37.0-80.0 Band Neutrophils % (Manual) 26 Lymphocytes % (Manual) 3 L 10.0-50.0 Monocytes % (Manual) 4 0-12 Eosinophils % (Manual) 0 0-7 Basophils % (Manual) 0 0.0-2.0 Metamyelocytes % (manual) 0 Myelocytes % (Manual) 0 Promyelocytes % (Manual) 0 Blast Cells % (Manual) 0 Reactive Lymphocytes 0 Platelet Estimate Adequate Red Blood Cell Morphology Normal Sodium Level 142 136-145 mmol/L Potassium Level 3.6 3.5-5.1 mmol/L Chloride Level 112 H 98-107 mmol/L Carbon Dioxide Level 19 L 20-31 mmol/L Anion Gap 11 5-15 Blood Urea Nitrogen 27 H 9-23 mg/dL Creatinine 0.60 0.550-1.02 mg/dL Glomerular Filtration Rate Calc 103 >90 mL/min BUN/Creatinine Ratio 45.0 H 10.0-20.0 Serum Glucose 106 74-106 mg/dL Lactic Acid Level 0.9 0.4-2.0 mmol/L Calcium Level 9.2 8.7-10.4 mg/dL Plasma/Serum Blood Alcohol < 3.0 <10 mg/dL Assessment/Plan Assessment/Plan Acute Hypoxia Bilateral pneumonia Altered mental status, improved Acute kidney injury Plan Admit telemetry Pulmonology consult. Bronchodilators. Supplemental O2 to maintain oxygen saturation greater than 93%. IV ABX Monitor BMP. Trend BUN / creatinine. GI ppx protonix / DVT ppx lovenox Plan discussed with: Patient, Daughter My Orders Orders - PATRICK RANKIN NP Procedure Category Date Status Time Admit ADMIT 03/15/24 Transmitted 22:21 Code Status CODE 03/15/24 Transmitted 22:21 Vital Signs [facility] 03/15/24 In Process 22:21 Review Orders With [facility] 03/15/24 In Process Adm. 22:21 Encourage Activity As [facility] 03/15/24 In Process Tolerate 22:21 Consistent DIET 03/16/24 Transmitted Carb(Ccho)Diabetes Breakfast Oxygen By Face Mask RT 03/15/24 Transmitted 22:21 Docusate Sodium [facility] 03/15/24 In Process Capsule (Colace 22:30 Acetaminophen Tablet PHA 03/15/24 In Process (Tylenol Tablet) 22:30 Notify Of Changes [facility] 03/15/24 In Process From Base 22:21 Advance Directive [facility] 03/15/24 In Process 22:21 Basic Metabolic Panel LAB 03/16/24 Logged 05:00 Basic Metabolic Panel LAB 03/17/24 Verified 05:00 Basic Metabolic Panel LAB 03/18/24 Verified 05:00 Complete Blood Count LAB 03/16/24 Logged 05:00 Complete Blood Count LAB 03/17/24 Verified 05:00 Complete Blood Count LAB 03/18/24 Verified 05:00 Patient Condition ORDERS 03/15/24 Transmitted 22:21 Allergies LIA 03/15/24 In Process 22:21 Ondansetron Hcl PHA 03/15/24 In Process (Zofran) 22:30 Enoxaparin Sodium PHA 03/16/24 In Process (Lovenox) 10:00 Sequential LIA 03/15/24 In Process Compression Device Nitroglycerin PHA 03/15/24 In Process Sublingual (Ntrostat 22:30 Morphine Sulfate PHA 03/15/24 In Process Injection 22:30 Stat Ekg For Chest LIA 03/15/24 In Process Pain 22:21 Notify Md Of Changes LIA 03/15/24 In Process From Base 22:21 Lpn For LIA 03/15/24 In Process 24 Hours 22:21 Emergency Dysrhythmia LIA 03/15/24 In Process Protocol 22:21 Rhythm Strips Once LIA 03/15/24 In Process Every Shift 22:21 Oxygen By Nasal RT 03/15/24 Transmitted Cannula 22:21 Levofloxacin 500mg PHA 03/16/24 In Process (Levaquin 500mg/ 100m 10:00 Oxycodone W/ Acet PHA 03/15/24 In Process 5/325mg Tab (Percocet 22:30 Albuterol Medneb PHA 03/16/24 In Process (Ventolin Medneb) 02:00 Ipratropium Medneb PHA 03/16/24 In Process (Atrovent Medneb) 02:00 *Consult CONS 03/15/24 Transmitted / 22:21 Sodium Chloride 0.9% PHA 03/15/24 In Process 22:45 Date of Service: Mar 16, 2024 Billing Provider: TRU PEREZ MD Common Visit Codes: NOT BILLABLE TRU PEREZ MD 03/16/24 2150: Review of Systems Allergies: Coded Allergies: Codeine (Verified Allergy, Severe, RASH, 08/05/14) Meperidine (Verified Allergy, Severe, RASH, 08/07/14) Sulfa Antibiotics (Verified Allergy, Intermediate, RASH, 08/04/15) Propoxyphene (Verified Allergy, Unknown, 02/01/15) Additional Comments Additional Comments Additional Comments Patient is seen and evaluated and admitted by nurse practitioner senior network architect. Patient's chart is reviewed. I agree with nurse practitioner's evaluation, documentation, assessment and care plan as outlined. PATRICK RANKIN NP Mar 16, 2024 02:04 TRU PEREZ MD Mar 16, 2024 21:50
[2024-03-16 05:47] LABS: Sodium 143 mmol/L (136-145)
[2024-03-16 05:48] LABS: Anion Gap 7 (5-15); Carbon Dioxide 22 mmol/L (20-31)
[2024-03-16 05:54] LABS: BUN/Creatinine Ratio 32.3 (10.0-20.0); Basophils # (auto) 0 10 ^3/uL (0-0.2); Basophils % (auto) 0.2 % (0.0-2.0); Blood Urea Nitrogen 21 mg/dL (9-23); Eosinophils # (auto) 0 10 ^3/uL (0-0.8); Eosinophils % (auto) 0.2 % (0.0-7.0); Hematocrit 36.4 % (36.0-46.0); Hemoglobin 11.8 g/dL (12.2-16.2); Lymphocytes # (auto) 1.3 10 ^3/uL (0.4-5.4); Lymphocytes % (auto) 11.5 % (10.0-50.0); Mean Corpuscular Hemoglobin 30.6 pg (28.0-32.0); Mean Corpuscular Hgb Conc. 32.5 g/dL (32.0-36.0); Mean Corpuscular Volume 94.2 fL (80.0-100.0); Monocytes # (auto) 0.7 10 ^3/uL (0-1.3); Monocytes % (auto) 6.2 % (0.0-12.0); Neutrophils # (auto) 9.1 10 ^3/uL (1.6-8.6); Neutrophils % (auto) 81.9 % (37.0-80.0); Platelet Count (auto) 246 10^3/uL (140-450); Red Blood Cells 3.86 10^6/uL (4.0-5.20); Red Cell Distribution Width 14.6 % (11.8-14.3); White Blood Cell 11.1 10^3/uL (4.4-10.8)
[2024-03-16 05:55] LABS: Calcium 8.5 mg/dL (8.7-10.4); Chloride 114 mmol/L (98-107); Glucose 125 mg/dL (74-106); Potassium 3.3 mmol/L (3.5-5.1)
--- NOTE | 2024-03-16 07:51 | ECG ---
[facility] Test Date: 2024-03-15 Test Time: 16:57:54 Pat Name: ERIKA KAPLAN Department: ER Room: 0201T Gender: F Stunt Double: JACQUELINE : 1965 Requested By: LEVON GARCIA Order Number: [id number] Reading MD: Ellis Tarango Measurements Intervals [place] Rate: 139 P: 42 NH: 132 QRS: 35 QRSD: 77 T: -46 QT: 230 QTc: 350 Interpretive Statements Sinus tachycardia Multiple premature complexes, vent & supraven Probable anteroseptal infarct, old Nonspecific repol abnormality, diffuse leads Electronically Signed On 03-17-2024 10:27:39 PST by Ellis Tarango Please click the below link to view image of tracing.
[2024-03-16] MEDS: levoFLOXacin 500MG 100 ML IV SCH (10:00)
[2024-03-16] MEDS: ENOXAPARIN SOD 40 MG/0.4 ML SYRINGE SC SCH (10:14)
[2024-03-16] MEDS: OXYCODONE W/ ACETAMINOPHEN 5/325MG TABLET PO PRN (10:26)
[2024-03-16 18:30] LABS: Rapid Influenza A Negative (Negative); Rapid Influenza B Negative (Negative)
[2024-03-16] MEDS ORDERED: PERCOT PO (22:34)
[2024-03-16] MEDS ORDERED: CYCL-839 PO (22:34)
--- NOTE | 2024-03-16 22:58 | DVHINCON2 ---
Date of service: Mar 16, 2024 Referring Physician Teofilo Chavez NP Reason for Consultation Acute hypoxic respiratory failure, pneumonia and atelectasis History of Present Illness A 58-year-old woman with PMHx of Pulmonary embolus, CHF, anxiety, bipolar, and depression who presented to ED on 03/15/24 with complaints of altered mental status, fevers, chills. EMS was called because the patient was confused and unable to hold a conversation with family members.. She was found To be febrile with elevated heart rate in the 140s. En route to the hospital she was also found to be hypoxic requiring supplemental oxygen 4 LNC to maintain sats 94%.. Patient was admitted for further care and pulmonary consultation is requested for evaluation and management of acute hypoxic respiratory failure, pneumonia and atelectasis. Review of Systems: 14-point review of systems negative unless otherwise noted above. Past Medical History: Pulmonary embolus, CHF, anxiety, bipolar, and depression Past Surgical History: None Medications: Reviewed. Allergies: Codeine Meperidine Sulfa Antibiotics Propoxyphene. Family History: Brain aneurysm Breast cancer Stroke Asthma Cardiovascular disease Hypertension Thyroid disorder Depression Suicide Social History: Nonsmoker. No alcohol or illicit drug use. Family History: Cancer G8 MOTHER FH: aneurysm FH: brain aneurysm FH: breast cancer FH: stroke FHx: suicide G8 FATHER Family history: Asthma 19 CHILD Family history: Cardiovascular disease Grandpa Family history: Depression (situation) Family history: Hypertension G8 MOTHER Grandma Family history: Thyroid disorder G8 MOTHER Stroke G8 MOTHER Allergies: Coded Allergies: Codeine (Verified Allergy, Severe, RASH, 08/05/14) Meperidine (Verified Allergy, Severe, RASH, 08/07/14) Sulfa Antibiotics (Verified Allergy, Intermediate, RASH, 08/04/15) Propoxyphene (Verified Allergy, Unknown, 02/01/15) Home Meds Active Scripts Doxycycline (Monohydrate) (Doxycycline) 100 Mg Cap, 100 MG PO BID, #10 CAP Prov:TRU PEREZ MD 03/17/24 Magnesium Oxide (MAGNESIUM OXIDE) 400 Mg Tab, 1 TAB PO DAILY for 30 Days, #30 TAB 0 Refills Prov:AMPARO VASQUES NP 08/31/23 Ferrous Sulfate (FERROUS SULFATE) 325 Mg Tb, 325 MG PO TID, #90 TAB Prov:CAROLINA PEPE MD 08/06/14 Reported Medications Oxycodone W/ Acetaminophen (Percocet 5/325MG) 1 Tab Tb, 1 TAB PO QID, #120 TAB 03/16/24 Cyclobenzaprine Hcl (Cyclobenzaprine Hcl) 10 Mg Tab, 10 MG PO BID, TAB 03/16/24 Diclofenac Sodium (Topical) (Gnp Arthritis Pain) 1 % Gel, 2 % EX BID, GEL 10/01/21 Spironolactone (Spironolactone) 100 Mg Tab, 100 MG PO BID, TAB 10/01/21 Cholecalciferol (VITAMIN D3) 2,000 Unit Tab, 2000 UNIT PO DAILY, TAB 10/01/21 Calcium Carbonate (Calcium 600) 600 Mg Tab, 600 MG PO DAILY, TAB 10/01/21 Fentanyl (Fentanyl) 25 Mcg/Hr Dis, 25 MCG TD Q72HR, DIS 10/01/21 Topiramate (Topamax) 50 Mg Tab, 1 TAB PO BID, #60 TAB 10/01/21 Alendronate Sodium (ALENDRONATE SODIUM) 70 Mg/75 Ml Mallory, 70 MG PO QWEEKLY, ML 10/01/21 [Omeprazole] No Conflict Check, 20 MG PO DAILY, #60 08/06/14 Gabapentin (Gabapentin) 100 Mg Cap, 800 MG PO TID, #90 08/06/14 Current Medications Current Medications Medications (Trade) Dose Ordered Sig/Debi Route PRN Reason Start Time Stop Time Status Last Admin Enoxaparin Sodium (Lovenox) 40 mg DAILY SC 03/16/24 10:00 03/16/24 10:14 Levofloxacin/ Dextrose 100 ml @ 100 mls/hr DAILY IV 03/16/24 10:00 03/16/24 18:28 DC Albuterol (Ventolin Medneb) 2.5 mg Q4HR NEB 03/16/24 02:00 03/16/24 19:16 Ipratropium [place] (Atrovent Medneb) 0.5 mg Q4HR NEB 03/16/24 02:00 03/16/24 19:17 Levofloxacin (Levaquin Tablet) 500 mg DAILY PO 03/17/24 10:00 03/23/24 18:00 Vital Signs Vital Signs Date Time Temp Pulse Resp B/P (MAP) Pulse Ox O2 Delivery O2 Flow Rate FiO2 03/16/24 22:00 79 13 116/71 (86) 98 03/16/24 19:30 Nasal Cannula* 3 32 03/16/24 19:30 97.9 97.9 Physical Exam Gen.: Patient lying in bed in no apparent distress. Breathing on room air. Head: Normocephalic, atraumatic. Eyes: EOMI/PERRLA. Ears: Normal hearing. Normal anatomy. Neck/trachea: Trachea midline, supple. Nose: Normal external anatomy. Mouth: Moist mucous membranes. Chest: Decreased air entry bilaterally. No wheezing or rhonchi. Cardiovascular: Positive S1, positive S2. Regular rate and rhythm. Abdomen: Positive bowel sounds in all 4 quadrants. Soft, non-tender, non- distended. : Deferred. Rectal: Deferred. Skin: Warm, dry. Intact. Extremities: 2+ radial pulses bilaterally. No lower extremity edema. Neuro: Awake, alert, oriented x3. No gross motor or sensory deficits. Cranial nerves II through XII intact. Gait not assessed. Labs/Diagnostic Data Labs Test 03/16/24 17:00 03/16/24 04:38 03/15/24 22:47 03/15/24 21:06 Range/Units Influenza Type A Antigen Negative Negative Influenza Type B Antigen Negative Negative White Blood Count 11.1 H 4.4-10.8 10^3/uL Red Blood Count 3.86 L 4.0-5.20 10^6/uL Hemoglobin 11.8 L 12.2-16.2 g/dL Hematocrit 36.4 # 36.0-46.0 % Mean Corpuscular Volume 94.2 80.0-100.0 fL Mean Corpuscular Hemoglobin 30.6 28.0-32.0 pg Mean Corpuscular Hemoglobin Concent 32.5 32.0-36.0 g/dL Red Cell Distribution Width 14.6 H 11.8-14.3 % Platelet Count 246 140-450 10^3/uL Mean Platelet Volume 8.7 6.9-10.8 fL Neutrophils (%) (Auto) 81.9 H 37.0-80.0 % Lymphocytes (%) (Auto) 11.5 10.0-50.0 % Monocytes (%) (Auto) 6.2 0.0-12.0 % Eosinophils (%) (Auto) 0.2 0.0-7.0 % Basophils (%) (Auto) 0.2 0.0-2.0 % Neutrophils # (Auto) 9.1 H 1.6-8.6 10 ^3/uL Lymphocytes # (Auto) 1.3 0.4-5.4 10 ^3/uL Monocytes # (Auto) 0.7 0-1.3 10 ^3/uL Eosinophils # (Auto) 0 0-0.8 10 ^3/uL Basophils # (Auto) 0 0-0.2 10 ^3/uL Nucleated Red Blood Cells 0.0 % Sodium Level 143 136-145 mmol/L Potassium Level 3.3 L 3.5-5.1 mmol/L Chloride Level 114 H 98-107 mmol/L Carbon Dioxide Level 22 20-31 mmol/L Anion Gap 7 5-15 Blood Urea Nitrogen 21 9-23 mg/dL Creatinine 0.65 0.550-1.02 mg/dL Glomerular Filtration Rate Calc 101 >90 mL/min BUN/Creatinine Ratio 32.3 H 10.0-20.0 Serum Glucose 125 H 74-106 mg/dL Calcium Level 8.5 L 8.7-10.4 mg/dL SARS-CoV-2 Antigen (Rapid) Negative NEGATIVE Urine Color Yellow Yellow Urine Clarity Turbid H Clear Urine pH 5.0 5.0-9.0 Urine Specific [place] 1.034 1.001-1.035 Urine Protein Trace H Negative Urine Ketones Trace Negative Urine Blood Negative Negative /uL Urine Nitrite Negative Negative Urine Bilirubin Negative Negative Urine Urobilinogen 2 H Negative mg/dL Urine Leukocyte Esterase Trace Negative /uL Urine RBC 2 0 - 4 /hpf Urine WBC 3 0 - 5 /hpf Urine Squamous Epithelial Cells Few <5 /hpf Urine Bacteria None seen None Seen /hpf Urine Hyaline Casts Few 0 - 2 /lpf Urine Mucus Few None Seen Urine Glucose Normal Normal mg/dL Test 03/15/24 18:03 Range/Units Differential Total Cells Counted 100.0 100 Neutrophils % (Manual) 67 37.0-80.0 Band Neutrophils % (Manual) 26 Lymphocytes % (Manual) 3 L 10.0-50.0 Monocytes % (Manual) 4 0-12 Eosinophils % (Manual) 0 0-7 Basophils % (Manual) 0 0.0-2.0 Metamyelocytes % (manual) 0 Myelocytes % (Manual) 0 Promyelocytes % (Manual) 0 Blast Cells % (Manual) 0 Reactive Lymphocytes 0 Platelet Estimate Adequate Red Blood Cell Morphology Normal Lactic Acid Level 0.9 0.4-2.0 mmol/L Plasma/Serum Blood Alcohol < 3.0 <10 mg/dL Microbiology Date/Time Source Procedure Growth Status 03/15/24 20:01 Blood Blood Culture - Preliminary NO GROWTH AFTER 24 HOURS OF INCUBATION. Resulted Assessment Impression: Acute hypoxic respiratory failure Pneumonia, likely gram negative Atelectasis Acute metabolic encephalopathy, improved. Chronic back pain Plan: Supplemental oxygen PRN Titrate to keep O2 sats above 92%. Continue bronchodilators. Antibiotics - Levaquin for 7 days. Incentive spirometry Pain control Avoid oversedation Monitor renal function. Monitor electrolytes. Supplement as necessary. Monitor ins and outs. DVT prophylaxis. Prognosis: Poor given patient's multiple co-morbidities. Rest of plan per hospitalist and other consultants. Thank you Teofilo Chavez NP, for allowing me to participate in this patient's care. Further recommendations will depend on the patient's clinical course. Please do not hesitate to contact me if you have any questions or concerns. This medical document was created using an electronic medical record system with [employer] dictation system. Although these documentations are being carefully reviewed, there may still be some phonetic and typographical changes. The errors are purely typographical, due to imperfection on the software program, and do not reflect any compromise in the patient's medical care. Plan discussed with: Patient, Other (CHRISTINE Chiang/EARLE Chavez) JAYDEN HESTER MD Mar 16, 2024 22:58
[2024-03-17] VITALS (15 sets, daily range): BP systolic 117–126; BP diastolic 68–77; PULSE 73–91; RESP 14–19; TEMP 98–98.4; O2SAT 95–100
[2024-03-17 07:34] LABS: Basophils # (auto) 0 10 ^3/uL (0-0.2); Basophils % (auto) 0.4 % (0.0-2.0); Eosinophils # (auto) 0.1 10 ^3/uL (0-0.8); Eosinophils % (auto) 1.4 % (0.0-7.0); Hematocrit 36.6 % (36.0-46.0); Lymphocytes # (auto) 0.8 10 ^3/uL (0.4-5.4); Lymphocytes % (auto) 16.3 % (10.0-50.0); Mean Corpuscular Hemoglobin 31.4 pg (28.0-32.0); Mean Corpuscular Hgb Conc. 32.9 g/dL (32.0-36.0); Mean Corpuscular Volume 95.5 fL (80.0-100.0); Monocytes # (auto) 0.4 10 ^3/uL (0-1.3); Monocytes % (auto) 7.7 % (0.0-12.0); Neutrophils # (auto) 3.7 10 ^3/uL (1.6-8.6); Neutrophils % (auto) 74.2 % (37.0-80.0); Nucleated Red Blood Cells % 0.1 %; Platelet Count (auto) 222 10^3/uL (140-450); Potassium 3.7 mmol/L (3.5-5.1); Red Blood Cells 3.83 10^6/uL (4.0-5.20); Red Cell Distribution Width 15.1 % (11.8-14.3); Sodium 143 mmol/L (136-145); White Blood Cell 4.9 10^3/uL (4.4-10.8)
[2024-03-17 07:35] LABS: Anion Gap 7 (5-15); Carbon Dioxide 23 mmol/L (20-31)
[2024-03-17 07:36] LABS: Calcium 9.3 mg/dL (8.7-10.4); Chloride 113 mmol/L (98-107)
[2024-03-17 07:40] LABS: BUN/Creatinine Ratio 17.2 (10.0-20.0); Blood Urea Nitrogen 11 mg/dL (9-23); Glucose 100 mg/dL (74-106)
[2024-03-17] MEDS: levoFLOXacin 500 MG TAB PO SCH (09:20)
--- NOTE | 2024-03-17 14:38 | ECG ---
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
[2024-03-17] MEDS ORDERED: DOXY100C79 PO (16:20)
--- NOTE | 2024-03-17 16:21 | DVHDS2 ---
Discharge Summary Date of Admission Mar 15, 2024 at 22:21 Date of Discharge: Mar 17, 2024 Admitting Diagnosis Confusion Labs/Diagnostic Data: Laboratory Results Test 03/17/24 06:48 03/16/24 17:00 03/15/24 22:47 03/15/24 21:06 White Blood Count 4.9 10^3/uL (4.4-10.8) Red Blood Count 3.83 10^6/uL (4.0-5.20) Hemoglobin 12.0 g/dL (12.2-16.2) Hematocrit 36.6 % (36.0-46.0) Mean Corpuscular Volume 95.5 fL (80.0-100.0) Mean Corpuscular Hemoglobin 31.4 pg (28.0-32.0) Mean Corpuscular Hemoglobin Concent 32.9 g/dL (32.0-36.0) Red Cell Distribution Width 15.1 % (11.8-14.3) Platelet Count 222 10^3/uL (140-450) Mean Platelet Volume 8.4 fL (6.9-10.8) Neutrophils (%) (Auto) 74.2 % (37.0-80.0) Lymphocytes (%) (Auto) 16.3 % (10.0-50.0) Monocytes (%) (Auto) 7.7 % (0.0-12.0) Eosinophils (%) (Auto) 1.4 % (0.0-7.0) Basophils (%) (Auto) 0.4 % (0.0-2.0) Neutrophils # (Auto) 3.7 10 ^3/uL (1.6-8.6) Lymphocytes # (Auto) 0.8 10 ^3/uL (0.4-5.4) Monocytes # (Auto) 0.4 10 ^3/uL (0-1.3) Eosinophils # (Auto) 0.1 10 ^3/uL (0-0.8) Basophils # (Auto) 0 10 ^3/uL (0-0.2) Nucleated Red Blood Cells 0.1 % Sodium Level 143 mmol/L (136-145) Potassium Level 3.7 mmol/L (3.5-5.1) Chloride Level 113 mmol/L (98-107) Carbon Dioxide Level 23 mmol/L (20-31) Anion Gap 7 (5-15) Blood Urea Nitrogen 11 mg/dL (9-23) Creatinine 0.64 mg/dL (0.550-1.02) Glomerular Filtration Rate Calc 101 mL/min (>90) BUN/Creatinine Ratio 17.2 (10.0-20.0) Serum Glucose 100 mg/dL (74-106) Calcium Level 9.3 mg/dL (8.7-10.4) Influenza Type A Antigen Negative (Negative) Influenza Type B Antigen Negative (Negative) SARS-CoV-2 Antigen (Rapid) Negative (NEGATIVE) Urine Color Yellow (Yellow) Urine Clarity Turbid (Clear) Urine pH 5.0 (5.0-9.0) Urine Specific [place] 1.034 (1.001-1.035) Urine Protein Trace (Negative) Urine Ketones Trace (Negative) Urine Blood Negative /uL (Negative) Urine Nitrite Negative (Negative) Urine Bilirubin Negative (Negative) Urine Urobilinogen 2 mg/dL (Negative) Urine Leukocyte Esterase Trace /uL (Negative) Urine RBC 2 /hpf (0 - 4) Urine WBC 3 /hpf (0 - 5) Urine Squamous Epithelial Cells Few /hpf (<5) Urine Bacteria None seen /hpf (None Seen) Urine Hyaline Casts Few /lpf (0 - 2) Urine Mucus Few (None Seen) Urine Glucose Normal mg/dL (Normal) Test 03/15/24 18:03 Differential Total Cells Counted 100.0 (100) Neutrophils % (Manual) 67 (37.0-80.0) Band Neutrophils % (Manual) 26 Lymphocytes % (Manual) 3 (10.0-50.0) Monocytes % (Manual) 4 (0-12) Eosinophils % (Manual) 0 (0-7) Basophils % (Manual) 0 (0.0-2.0) Metamyelocytes % (manual) 0 Myelocytes % (Manual) 0 Promyelocytes % (Manual) 0 Blast Cells % (Manual) 0 Reactive Lymphocytes 0 Platelet Estimate Adequate Red Blood Cell Morphology Normal Lactic Acid Level 0.9 mmol/L (0.4-2.0) Plasma/Serum Blood Alcohol < 3.0 mg/dL (<10) Other Laboratory Tests 03/17/24 06:48 Brief Hx & Hospital Course: 58y F who presents to the ED via EMS for chief complaint of confusion. Per pt, pt states she woke up in the afternoon approx 1:30 PM and states felt confused and was unable to have a conversation with her son and states she was unable to answer simple questions. Pt son got worried and noted pt started to get chills and felt she was having trouble communicating and called pt daughters and states they told son to call EMS. EMS arrived on scene and after doing EKG, found it was abnormal with tachycardia and PVC's and brought pt to the ED. Pt in the ED, has heart rate of 145 and pt is noted to be febrile. Pt is now in the ED, noted alert and oriented x 4 and able to answer all questions and now denies any changes in vision, speech or gait. Pt otherwise denies any recent fall or injury. Pt otherwise denies any other symptoms at this time. she was evaluated and noted to have a community-acquired lobar pneumonia. Therefore she was admitted and evaluated by online services manager. She received empiric antibiotics and supportive care and treatment. Patient's symptoms have significantly improved. She was oxygenating well. Her mentation is back to normal baseline status. She was no longer shortness of breath. Overall given the patient's symptoms resolved and back to baseline normal status it is felt she could be safely discharged home with continued antibiotic as prescribed and close follow up with her primary care physician. This is discussed with the patient and has verbalized understanding over hospital diagnosis, treatment she received, discharge medications and agree with the discharge instructions and follow-up plan of care as mentioned. Consults/Reason for consult Assessment Impression: Acute hypoxic respiratory failure Pneumonia, likely gram negative Atelectasis Acute metabolic encephalopathy, improved. Chronic back pain Plan: Supplemental oxygen PRN Titrate to keep O2 sats above 92%. Continue bronchodilators. Antibiotics - Levaquin for 7 days. Incentive spirometry Pain control Avoid oversedation Monitor renal function. Monitor electrolytes. Supplement as necessary. Monitor ins and outs. DVT prophylaxis. Prognosis: Poor given patient's multiple co-morbidities. Rest of plan per hospitalist and other consultants. Thank you Teofilo Chavez NP, for allowing me to participate in this patient's care. Further recommendations will depend on the patient's clinical course. Please do not hesitate to contact me if you have any questions or concerns. This medical document was created using an electronic medical record system with [employer] system. Although these documentations are being carefully reviewed, there may still be some phonetic and typographical changes. The errors are purely typographical, due to imperfection on the software program, and do not reflect any compromise in the patient's medical care. Plan discussed with: Patient, Other (CHRISTINE Chiang/EARLE Chavez) JAYDEN HESTER MD Mar 16, 2024 22:58 Operations or Procedures EXAM: CT CHEST WITHOUT CONTRAST History: pain Comparison Study: CT HEAD WITHOUT CONTRAST on DOS: 03/15/24, CT HEAD WITHOUT CONTRAST on DOS: 08/31/23, CT R SHOULDER WO CONTRAST on DOS: 10/01/21 TECHNIQUE: Multidetector CT of the chest was performed. Imaging was performed without IV contrast. Axial, coronal, and sagittal multiplanar reformats were obtained from the axial data set by the technologist. Radiation Dose : CTDI vol 12.15 mGy, DLP 423.55 mGy*cm. Findings: Lungs: Bilateral lower lobe and inferior right upper lobe groundglass opacities. Pleura: Unremarkable Heart/Great vessels: The visualized heart is unremarkable. No cardiomegaly or pericardial effusion. Mediastinum: Unremarkable Soft tissues/Bones: Unremarkable Cholecystectomy. Postsurgical changes of the stomach. The remaining partially visualized upper abdomen is within normal limits. Impression: 1. Multifocal groundglass opacities favor an infectious/inflammatory etiology versus atelectasis. Condition at Discharge: Stable Final Diagnosis/Problems List Lobar pneumonia community-acquired Discharge Disposition: Home Discharge Instruct/Medications Diet: Consistent carbohydrate, Cardiac 2g Na,low cholest Activity: No Restrictions, As Tolerated Follow Up/Referral: Primary care physician follow up pneumonia after two weeks Medications: Finish antibiotic as prescribed and continue home medications New Medications: Doxycycline (Monohydrate) (Doxycycline) 100 Mg Cap 100 MG PO BID, #10 CAP Continued Medications: Alendronate Sodium (Alendronate Sodium) 70 Mg/75 Ml Mallory 70 MG PO QWEEKLY, ML Calcium Carbonate (Calcium 600) 600 Mg Tab 600 MG PO DAILY, TAB Cholecalciferol (Vitamin D3) 2,000 Unit Tab 2000 UNIT PO DAILY, TAB Cyclobenzaprine Hcl (Cyclobenzaprine Hcl) 10 Mg Tab 10 MG PO BID, TAB Diclofenac Sodium (Topical) (Gnp Arthritis Pain) 1 % Gel 2 % EX BID, GEL Fentanyl (Fentanyl) 25 Mcg/Hr Dis 25 MCG TD Q72HR, DIS Ferrous Sulfate (Ferrous Sulfate) 325 Mg Tb 325 MG PO TID, #90 TAB Gabapentin (Gabapentin) 100 Mg Cap 800 MG PO TID, #90 Magnesium Oxide (Magnesium Oxide) 400 Mg Tab 1 TAB PO DAILY for 30 Days, #30 TAB 0 Refills [Omeprazole] () 20 MG PO DAILY, #60 Oxycodone W/ Acetaminophen (Percocet 5/325MG) 1 Tab Tb 1 TAB PO QID, #120 TAB Spironolactone (Spironolactone) 100 Mg Tab 100 MG PO BID, TAB Topiramate (Topamax) 50 Mg Tab 1 TAB PO BID, #60 TAB Discharge Statement: "Patient was advised to return to the ER or call 911 if any headaches, dizziness, shortness of breath, chest pain, abdominal pain, bleeding, fevers, or worsening of medical condition. Patient was counseled about treatment plan, medications, possible side effects, patientverbalized understanding. All questions were answered to the best of my ability. This discharge took greater then 30 minutes in planning, reviewing documentation, counseling the patient, and discussing with other team members." ASSESSMENT ASSESSMENT Assessment Lobar pneumonia community-acquired TRU PEREZ MD Mar 17, 2024 16:21
--- NOTE | 2024-03-17 23:19 | DVHPN2 ---
Progress Note - Dictate Date Seen: Mar 17, 2024 Medical Necessity Reason Pt with a Central, PICC or Fol: No Subjective Patient seen and examined at bedside. Breathing comfortably on room air. Overnight events reviewed. vital signs Vital Sign Date Time Temp Pulse Resp B/P (MAP) Pulse Ox O2 Delivery O2 Flow Rate FiO2 03/17/24 17:00 98.1 89 14 118/77 (91) 97 98.1 03/17/24 15:12 Room Air* 0 21 Total Intake and Output 03/16/24 03/16/24 03/17/24 15:00 23:00 07:00 Intake Total 220 ml Balance 220 ml objective Gen.: Patient lying in bed in no apparent distress. Breathing on room air. Head: Normocephalic, atraumatic. Eyes: EOMI/PERRLA. Ears: Normal hearing. Normal anatomy. Neck/trachea: Trachea midline, supple. Nose: Normal external anatomy. Mouth: Moist mucous membranes. Chest: Decreased air entry bilaterally. No wheezing or rhonchi. Cardiovascular: Positive S1, positive S2. Regular rate and rhythm. Abdomen: Positive bowel sounds in all 4 quadrants. Soft, non-tender, non- distended. : Deferred. Rectal: Deferred. Skin: Warm, dry. Intact. Extremities: 2+ radial pulses bilaterally. No lower extremity edema. Neuro: Awake, alert, oriented x3. No gross motor or sensory deficits. Cranial nerves II through XII intact. Gait not assessed. laboratory and microbiology Laboratory Tests 03/17/24 06:48 Test 03/17/24 06:48 Range/Units Serum Glucose 100 74-106 mg/dL Assessment/Plan Impression: Acute hypoxic respiratory failure Pneumonia, likely gram negative Atelectasis Acute metabolic encephalopathy, improved. Chronic back pain Events: Breathing on room air No respiratory distress. Patient is stable for discharge from the pulmonary standpoint. Follow up w/ Dr. Lamar in 2-3 weeks in Outpatient [facility]. Complete Levaquin course. Incentive spirometry Labs and imaging reviewed. Rest of plan as noted below. Plan: Supplemental oxygen PRN Titrate to keep O2 sats above 92%. Continue bronchodilators. Antibiotics - Levaquin for 7 days. Incentive spirometry Pain control Avoid oversedation Monitor renal function. Monitor electrolytes. Supplement as necessary. Monitor ins and outs. DVT prophylaxis. Prognosis: Poor given patient's multiple co-morbidities. Rest of plan per hospitalist and other consultants. Thank you Teofilo Chavez NP, for allowing me to participate in this patient's care. Further recommendations will depend on the patient's clinical course. Please do not hesitate to contact me if you have any questions or concerns. This medical document was created using an electronic medical record system with [employer] dictation system. Although these documentations are being carefully reviewed, there may still be some phonetic and typographical changes. The errors are purely typographical, due to imperfection on the software program, and do not reflect any compromise in the patient's medical care. Plan discussed with: Patient, Other (CHRISTINE Benz) JAYDEN LAMAR MD Mar 17, 2024 23:19
== END 2024-03-17 17:45 | disposition home or self-care (01) | DRG 177 ==
LOC: EDBD 16:53 → ER 16:53 → TELE 22:21 → TELE-CENTR 03-16 22:18
PROVIDERS: ADMIT Nurse Practitioner Family; ATTEND Internal Medicine
DX: J15.69 Pneumonia due to other Gram-negative bacteria (principal); G93.41 Metabolic encephalopathy; J96.01 Acute respiratory failure with hypoxia; N17.9 Acute kidney failure, unspecified; J98.11 Atelectasis; J15.9 Unspecified bacterial pneumonia; Z20.822 Contact with and (suspected) exposure to COVID-19; G89.29 Other chronic pain; I11.0 Hypertensive heart disease with heart failure; I50.9 Heart failure, unspecified; F41.9 Anxiety disorder, unspecified; F31.9 Bipolar disorder, unspecified; Z86.711 Personal history of pulmonary embolism; Z90.49 Acquired absence of other specified parts of digestive tract; Z88.5 Allergy status to narcotic agent; Z88.1 Allergy status to other antibiotic agents; Z80.3 Family history of malignant neoplasm of breast; Z82.5 Family history of asthma and other chronic lower respiratory diseases; Z82.49 Family history of ischemic heart disease and other diseases of the circulatory system; Z82.3 Family history of stroke; Z81.8 Family history of other mental and behavioral disorders
CPT/HCPCS: 36415; 70450; 71045; 71250; 80048; 80320; 81001; 83605; 85007; 85025; 85027; 87040; 87426; 87804; 93005; 94640; 99291; G0378; J1956

== ENCOUNTER 2025-01-25 19:45 | Inpatient (IN) | payer OTHER, MEDICAID ==
[~2025-01-25] VITALS: Ht 172.7 cm; Wt 68.0 kg
[~2025-01-25 19:45] MED LIST changes: -BACL20TA PO; +CYCL-839 PO; -DOCU-94 PO; +DOXY100C79 PO; -HYDR-4072 PO; -MODA200T73 PO; -NAP500T PO; +PERCOT PO
[2025-01-25 20:35] VITALS: PULSE 107; RESP 24; O2SAT 96
[2025-01-25 21:08] LABS: Hematocrit 34.1 % (36.0-46.0); Hemoglobin 11.4 g/dL (12.2-16.2); Mean Corpuscular Hemoglobin 31.4 pg (28.0-32.0); Mean Corpuscular Volume 93.7 fL (80.0-100.0); Nucleated Red Blood Cells % 0.0 %
[2025-01-25] MEDS: SODIUM CHLORIDE 0.9% 1,000 ML IV ONE ×2 (21:20→23:05)
[2025-01-25 21:33] LABS: Alanine Aminotransferase 27 U/L (7-40); Carbon Dioxide 21 mmol/L (20-31); Glucose 105 mg/dL (74-106); Potassium 3.7 mmol/L (3.5-5.1)
[2025-01-25 21:34] LABS: Anion Gap 10 (5-15); BUN/Creatinine Ratio 30.6 (10.0-20.0); Blood Urea Nitrogen 15 mg/dL (9-23); Sodium 141 mmol/L (136-145)
[2025-01-25 21:38] LABS: Albumin 3.1 g/dL (3.2-4.8); Alkaline Phosphatase 161 U/L (46-116); Bilirubin, Total 0.2 mg/dL (0.2-1.0); Calcium 8.1 mg/dL (8.7-10.4); Chloride 110 mmol/L (98-107); Total Protein 5.5 g/dL (5.7-8.2)
--- NOTE | 2025-01-25 21:43 | DVH ---
CLINICAL HISTORY: Suspected Sepsis TECHNIQUE: Single view of the chest was obtained. COMPARISON: XR CHEST 2 VIEW on DOS: 01/15/25, XR CHEST 2 VIEW on DOS: 07/01/24, XY CHEST PORTABLE on DO S: 03/15/24, CR CHEST 2 VIEW on DOS: 01/21/24, XY R RIB XRAY on DOS: 07/29/22 FINDINGS: The heart size and pulmonary vasculature are normal. The lungs are clear. There is a right shoulder a rthroplasty with adjacent surgical clips. There has been prior cervical IMPRESSION: NO ACUTE CARDIOPULMONARY PROCESS.
[2025-01-25 22:04] LABS: Urine Protein, UAD Negative (Negative)
--- NOTE | 2025-01-25 22:35 | DVH ---
CLINICAL HISTORY: Status onset confusion. TECHNIQUE: Helical scanning was performed of the head from the skull base to the vertex. Multiplanar reconstructions were performed. This exam was performed according to our departmental dose optimizat ion program. Up-to-date CT equipment and radiation dose reduction techniques are utilized as appropri ate. CTDI 50 DLP 891 COMPARISON: CT HEAD WITHOUT CONTRAST on DOS: 03/15/24, CT HEAD WITHOUT CONTRAST on DOS: 08/31/23, HEAD WITHOUT CONTRAST on DOS: 09/30/21 FINDINGS: There is no evidence for acute intracranial hemorrhage, acute ischemic changes, mass, mass effect, or extra-axial fluid collection. There is no hydrocephalus or midline shift. There is no effacement of the cerebral sulci and basal subarachnoid cisterns. The [place]-white matter differentiation is well cammie ntained. The imaged paranasal sinuses are clear. IMPRESSION: NO ACUTE INTRACRANIAL ABNORMALITY SEEN.
[2025-01-25] MEDS: IOHEXOL 350 MG/ML 100ML IJ ONE (23:23)
[2025-01-26] VITALS (9 sets, daily range): BP systolic 115–128; BP diastolic 72–85; PULSE 76–93; RESP 17–20; TEMP 36.9; O2SAT 95–100
--- NOTE | 2025-01-26 01:03 | DVH ---
CTA Chest with intravenous contrast INDICATION: Rule out PE COMPARISON: Same day chest radiograph, CT chest 03/15/2024 TECHNIQUE: Multidetector spiral CTA of the chest was performed of the chest with intravenous contrast . PULMONARY ANGIOGRAPHY PROTOCOL was utilized using a bolus-tracking technique centered on the main p ulmonary artery. Axial, coronal and sagittal multiplanar and MIP reformats were performed. Radiation Dose : 1. Chest: CTDI volume is 5.92 mGy. Dose-length product is 645.28 mGy*cm The dose indicators for CT are the volume Computed Tomography (CT) Dose Index (CTDIvol) and the Dose Length Product (DLP), and are measured in units of mGy and mGy-cm, respectively. These indicators are not patient dose, but values generated from the CT scanner acquisition factors. The report includes radiation exposure data for exposures received during this examination. Findings: Pulmonary arteries: Technical factors adequate for assessment of the level of the lobar arteries. No filling defect. Borderline enlargement of the central pulmonary arteries, unchanged from 2023. Lower neck: Unremarkable. Lungs: Mild apical interlobular septal thickening. Previous pulmonary opacities have significantly im proved, with mild residual interstitial markings in the left lung. No evidence of acute infectious c onsolidation. Scattered subsegmental atelectasis. Central airways are clear. Pleura: No effusion or pneumothorax. Trace left pleural fluid. Heart/Vascular Structures: Mild cardiomegaly. Normal positioning of the interventricular septum. Mil d atherosclerosis. Lymph Nodes: No adenopathy Musculoskeletal: No acute osseous abnormality. Redemonstrated lower cervical and midthoracic spine dunn rdware fixation. Partially visualized reverse right total shoulder arthroplasty. Soft tissues: Large, partially visualized gas and fluid collection within the right axilla extending along the lateral chest wall/breast. Upper abdomen: No acute abnormality. Postsurgical change of the stomach. Redemonstrated fat density l esion adjacent to the right adrenal gland. IMPRESSION: 1. No pulmonary embolism to the level of the lobar arteries. Exam is limited by significant streak a rtifact. 2. No acute cardiopulmonary findings. Mild bilateral interstitial opacities, improved from 2023. 3. Large, partially imaged gas and fluid collection of the right axilla extending along the chest wal l. Correlate with physical exam.
[2025-01-26] MEDS ORDERED: NITROGLYCERIN 0.4 MG SL TAB SL PRN (01:45)
[2025-01-26] MEDS ORDERED: ACETAMINOPHEN 325 MG TAB PO PRN (01:45)
[2025-01-26] MEDS ORDERED: DOCUSATE SOD 100 MG CAP PO PRN (01:45)
[2025-01-26] MEDS ORDERED: ONDANSETRON HCL 4 MG/2 ML VIAL IV PRN (01:45)
[2025-01-26] MEDS ORDERED: MORPHINE SULFATE INJ 2 MG/ml SYRG IV PRN (01:45)
[2025-01-26] MEDS ORDERED: HYDROcodone-ACET 5/325MG TAB PO PRN (01:45)
--- NOTE | 2025-01-26 02:53 | DVH ---
Bilateral lower extremity venous duplex Clinical History: high d dimer Comparison: US BI LAT UPPER DVT on DOS: 01/26/25 Technique: Duplex Doppler evaluation of the deep venous systems of both lower extremities from the common femora l veins to the popliteal veins including color Doppler and spectral/pulsed waveform analysis was perf ormed. Findings: RIGHT SIDE: The common femoral vein demonstrates appropriate compressibility and waveform variability. There is compressibility/patency of the great saphenous vein at the proximal thigh. The femoral vein demonstrates appropriate compressibility and waveform variability. The deep femoral vein demonstrates appropriate compressibility and waveform variability. The popliteal vein demonstrates appropriate compressibility and waveform variability. There is normal compressibility at the tibioperoneal trunk. LEFT SIDE: The common femoral vein demonstrates appropriate compressibility and waveform variability. There is compressibility/patency of the great saphenous vein at the proximal thigh. The femoral vein demonstrates appropriate compressibility and waveform variability. The deep femoral vein demonstrates appropriate compressibility and waveform variability. The popliteal vein demonstrates appropriate compressibility and waveform variability. There is normal compressibility at the tibioperoneal trunk. Impression: 1. No right or left femoropopliteal venous thrombosis.
[2025-01-26 02:55] LABS: Opiate Scree,Urine Neg (NEGATIVE)
--- NOTE | 2025-01-26 02:55 | DVH ---
Bilateral Upper Extremity Venous Duplex Clinical History: d dimer Comparison: US BILAT LOWER DVT on DOS: 01/26/25 Findings: Duplex Doppler evaluation of the venous systems of the right and left lower neck and upper extremitie s including color Doppler and spectral/pulsed waveform analysis was performed. RIGHT SIDE: The internal jugular vein demonstrates appropriate compressibility and waveform variability. The subclavian vein is patent on color Doppler evaluation without intraluminal thrombus and demonstra alena waveform variability. The visualized portion of the brachiocephalic vein is patent on color Doppler evaluation without intr aluminal thrombus and demonstrates waveform variability. The axillary vein demonstrates appropriate compressibility and waveform variability. The brachial , basilic, cephalic, and forearm veins were not visualized due to overlying bandage and brace. LEFT SIDE: The internal jugular vein demonstrates appropriate compressibility and waveform variability. The subclavian vein is patent on color Doppler evaluation without intraluminal thrombus and demonstra alena waveform variability. The visualized portion of the brachiocephalic vein is patent on color Doppler evaluation without intr aluminal thrombus and demonstrates waveform variability. The axillary vein demonstrates appropriate compressibility and waveform variability. The brachial veins demonstrate appropriate compressibility and patency on Doppler evaluation. The basilic vein demonstrates appropriate compressibility and patency on Doppler evaluation. The cephalic vein demonstrates appropriate compressibility and patency on Doppler evaluation. Impression: No thrombus identified in the assessable portions of the upper extremities.
[2025-01-26 02:59] LABS: Amphetamine Screen, Urine Neg (NEGATIVE); Barbiturate Scree,Urine Neg (NEGATIVE); Benzodiazephine Screen, Urine Neg (NEGATIVE); Cannabinoid Screen, Urine Neg (NEGATIVE); Cocaine Screen, Urine Neg (NEGATIVE); Phencyclidine Screen, Urine Neg (NEGATIVE)
[2025-01-26] MEDS: SODIUM CHLORIDE 0.9% 1,000 ML IV SCH (03:20)
[2025-01-26 04:09] LABS: Hematocrit 34.4 % (36.0-46.0); Hemoglobin 11.4 g/dL (12.2-16.2); Mean Corpuscular Hemoglobin 30.9 pg (28.0-32.0); Mean Corpuscular Volume 93.0 fL (80.0-100.0)
[2025-01-26 04:36] LABS: Potassium 3.6 mmol/L (3.5-5.1); Sodium 142 mmol/L (136-145)
[2025-01-26 04:37] LABS: Anion Gap 10 (5-15); Carbon Dioxide 21 mmol/L (20-31)
[2025-01-26 04:40] LABS: Calcium 8.4 mg/dL (8.7-10.4); Chloride 111 mmol/L (98-107)
[2025-01-26 04:42] LABS: BUN/Creatinine Ratio 29.8 (10.0-20.0); Blood Urea Nitrogen 14 mg/dL (9-23); Glucose 85 mg/dL (74-106)
[2025-01-26 05:05] LABS: Total Cells Counted 100.0 (100)
[2025-01-26 05:43] LABS: COVID19 ANTIGEN SOFIA FIA NEGATIVE (NEGATIVE)
[2025-01-26] MEDS: PIPERACILLIN-TAZOB 3.375GM 100 ML IV ONE (05:59)
--- NOTE | 2025-01-26 08:26 | ECG ---
[facility] Test Date: 2025-01-25 Test Time: 20:08:00 Pat Name: ERIKA KAPLAN Department: [facility] ED Patient ID: [id number] Room: 0276T Gender: F [employer] Viewer: : 1965 Requested By: ARLENE TRUJILLO Order Number: [id number] Reading MD: Ellis Tarango Measurements Intervals [place] Rate: 107 P: 31 NV: 121 QRS: 37 QRSD: 85 T: -1 QT: 321 QTc: 429 Interpretive Statements Sinus tachycardia Multiple ventricular premature complexes Borderline T abnormalities, inferior leads Electronically Signed On 01-30-2025 13:28:34 PST by Ellis Tarango Please click the below link to view image of tracing.
[2025-01-26] MEDS: FAMOTIDINE (10MG/ML) 2ML VL IV SCH (10:12)
[2025-01-26] MEDS: ENOXAPARIN SOD 40 MG/0.4 ML SYRINGE SC SCH (10:13)
[2025-01-26] MEDS: HYDROcodone-ACET 10/325MG TAB PO PRN (10:14)
--- NOTE | 2025-01-26 11:26 | ED.PDOC ---
History of Present Illness HPI Comments 59-year-old female, came to ER via EMS for generalized weakness. Patient picked up at home, was noted by family members to be after altered and confused so paramedics were called. Patient admits that she still feels confused, unable to answer questions correctly despite knowing the correct answer. Patient recently had right shoulder surgery week ago, currently complaining of right shoulder pain today. On scene patient noted to be saturating 93% on room air, blood sugar 107, slightly febrile 100.7 F. patient was given oxygen at 2 L/min, 500 cc of IV fluids and Tylenol for the fever. Patient also complaining of chronic headaches, that is worsened today. She denies any urinary symptoms REVIEW OF SYSTEMS: General: No fever, no chills, or fatigue HEENT: No sore throat, no earache, no congestion, no neck pain. Cardiac: No chest pain. No palpitations. Lungs: No shortness of breath, no cough. GI: No nausea, no vomiting, no diarrhea, no constipation, no abdominal pain : No dysuria, frequency, or urgency. No hematuria. Musculoskeletal: (+) right shoulder joint pain , no joint swelling, no extremity edema. Skin: No rash, no itching. Neuro: No headache, no dizziness, no weakness (+) confusion EXAM: General: Awake, alert and oriented. No acute distress. Skin: Skin in warm, dry and intact. Appropriate color for ethnicity. HEENT: The head is normocephalic and atraumatic. Conjunctivae are clear without exudates or hemorrhage. Sclera is non-icteric. EOM are intact. No signs of nystagmus. Eyelids are normal in appearance without swelling or lesions. Oral mucosa is pink and moist Neck: The neck is supple with normal range of motion. No JVD. Cardiac: Heart rate and rhythm are normal. No murmurs, gallops, or rubs are auscultated. Respiratory: No signs of respiratory distress. Lung sounds are clear in all lobes bilaterally without rales, rhonchi, or wheezes. Abdominal: Abdomen is soft, non-tender without distention. Bowel sounds are present and normoactive in all four quadrants. Extremities: Upper and lower extremities are atraumatic in appearance without deformity or edema. Neurological: The patient is awake, alert and oriented to person, place, and time with normal speech. Speech is clear. There is no facial asymmetry. Psychiatric: Appropriate mood and affect. Good judgement and insight Chief Complaint: General Weakness Time Seen by MD: 20:59 Primary Care Provider: FÉLIX Reviewed Notes: Nurses Notes Allergies: Coded Allergies: Codeine (Verified Allergy, Severe, RASH, 08/05/14) Meperidine (Verified Allergy, Severe, RASH, 08/07/14) Sulfa Antibiotics (Verified Allergy, Intermediate, RASH, 08/04/15) Propoxyphene (Verified Allergy, Unknown, 02/01/15) Home Meds Active Scripts Doxycycline (Monohydrate) (Doxycycline) 100 Mg Cap, 100 MG PO BID, #10 CAP Prov:TRU PEREZ MD 03/17/24 Magnesium Oxide (MAGNESIUM OXIDE) 400 Mg Tab, 1 TAB PO DAILY for 30 Days, #30 TAB 0 Refills Prov:AMPARO VASQUES PATIENT COMPANION 08/31/23 Ferrous Sulfate (FERROUS SULFATE) 325 Mg Tb, 325 MG PO TID, #90 TAB Prov:CAROLINA PEPE MD 08/06/14 Reported Medications Oxycodone W/ Acetaminophen (Percocet 5/325MG) 1 Tab Tb, 1 TAB PO QID, #120 TAB 03/16/24 Cyclobenzaprine Hcl (Cyclobenzaprine Hcl) 10 Mg Tab, 10 MG PO BID, TAB 03/16/24 Diclofenac Sodium (Topical) (Gnp Arthritis Pain) 1 % Gel, 2 % EX BID, GEL 10/01/21 Spironolactone (Spironolactone) 100 Mg Tab, 100 MG PO BID, TAB 10/01/21 Cholecalciferol (VITAMIN D3) 2,000 Unit Tab, 2000 UNIT PO DAILY, TAB 10/01/21 Calcium Carbonate (Calcium 600) 600 Mg Tab, 600 MG PO DAILY, TAB 10/01/21 Fentanyl (Fentanyl) 25 Mcg/Hr Dis, 25 MCG TD Q72HR, DIS 10/01/21 Topiramate (Topamax) 50 Mg Tab, 1 TAB PO BID, #60 TAB 10/01/21 Alendronate Sodium (ALENDRONATE SODIUM) 70 Mg/75 Ml Mallory, 70 MG PO QWEEKLY, ML 10/01/21 [Omeprazole] No Conflict Check, 20 MG PO DAILY, #60 08/06/14 Gabapentin (Gabapentin) 100 Mg Cap, 800 MG PO TID, #90 08/06/14 Information Source: Patient, Emergency Med Personnel Mode of Arrival: EMS Past Medical History PAST MEDICAL HISTORY: Anxiety, Arthritis, CHF, HTN, PE Past Medical History (Other): Chronic pain syndrome Surgical History: Appendectomy, Cholecystectomy, Tonsillectomy Surgical History (Other): Right shoulder surgery last week, left knee surgery CONDITIONER TENDER History: No Pertinent CONDITIONER TENDER History Family History Family History: No family hx of HTN Social History Smoker: Non-Smoker Alcohol: Rarely Drugs: Denies Drug Use Lives In: Home Was a procedure done? Was a procedure done?: No EKG EKG : Pulse Rate (adult): 107 Cardiac Rhythm: ST Differential Dx Considerations may include: Anemia, electrolyte imbalance, urinary tract infection, altered level of consciousness X-Ray, Labs, Meds, VS Vital Signs Date Time Temp Pulse Resp B/P (MAP) Pulse Ox O2 Delivery O2 Flow Rate FiO2 01/25/25 23:00 99.5 90 14 106/67 (80) 97 99.5 01/25/25 20:45 99.6 107 24 111/70 (84) 96 99.6 01/25/25 20:35 107 24 96 Nasal Cannula* 2 28 01/25/25 20:08 107 01/25/25 20:00 104 01/25/25 19:45 100.7 119 18 124/74 99 100.7 Lab Test 01/25/25 21:20 01/25/25 20:53 Range/Units Urine Color Yellow Yellow Urine Clarity Clear Clear Urine pH 5.5 5.0-9.0 Urine Specific [place] 1.031 1.001-1.035 Urine Protein Negative Negative Urine Ketones Trace Negative Urine Blood Negative Negative /uL Urine Nitrite Negative Negative Urine Bilirubin Negative Negative Urine Urobilinogen 3 H Negative mg/dL Urine Leukocyte Esterase Negative Negative /uL Urine RBC <1 0 - 4 /hpf Urine Microscopic WBC 1 0-5 /HPF Urine Squamous Epithelial Cells Few <5 /hpf Urine Bacteria None seen None Seen /hpf Urine Mucus Few None Seen Urine Glucose Normal Normal mg/dL White Blood Count 5.6 4.4-10.8 10^3/uL Red Blood Count 3.64 L 4.0-5.20 10^6/uL Hemoglobin 11.4 L 12.2-16.2 g/dL Hematocrit 34.1 L 36.0-46.0 % Mean Corpuscular Volume 93.7 80.0-100.0 fL Mean Corpuscular Hemoglobin 31.4 28.0-32.0 pg Mean Corpuscular Hemoglobin Concent 33.4 32.0-36.0 g/dL Red Cell Distribution Width 13.3 11.8-14.3 % Platelet Count 329 140-450 10^3/uL Mean Platelet Volume 7.9 6.9-10.8 fL Neutrophils (%) (Auto) 76.9 37.0-80.0 % Lymphocytes (%) (Auto) 11.8 10.0-50.0 % Monocytes (%) (Auto) 10.2 0.0-12.0 % Eosinophils (%) (Auto) 0.6 0.0-7.0 % Basophils (%) (Auto) 0.5 0.0-2.0 % Neutrophils # (Auto) 4.3 1.6-8.6 10 ^3/uL Lymphocytes # (Auto) 0.7 0.4-5.4 10 ^3/uL Monocytes # (Auto) 0.6 0-1.3 10 ^3/uL Eosinophils # (Auto) 0 0-0.8 10 ^3/uL Basophils # (Auto) 0 0-0.2 10 ^3/uL Nucleated Red Blood Cells 0.0 % D-Dimer, Quantitative 3.30 H 0.0-0.49 mg/L FEU Sodium Level 141 136-145 mmol/L Potassium Level 3.7 3.5-5.1 mmol/L Chloride Level 110 H 98-107 mmol/L Carbon Dioxide Level 21 20-31 mmol/L Anion Gap 10 5-15 Blood Urea Nitrogen 15 9-23 mg/dL Creatinine 0.49 L 0.550-1.02 mg/dL Glomerular Filtration Rate Calc 107 >90 mL/min BUN/Creatinine Ratio 30.6 H 10.0-20.0 Serum Glucose 105 74-106 mg/dL Lactic Acid Level 0.8 0.4-2.0 mmol/L Calcium Level 8.1 L 8.7-10.4 mg/dL Total Bilirubin 0.2 0.2-1.0 mg/dL Aspartate Amino Transferase (AST) 16 13-40 U/L Alanine Aminotransferase (ALT) 27 7-40 U/L Alkaline Phosphatase 161 H 46-116 U/L Total Protein 5.5 L 5.7-8.2 g/dL Albumin 3.1 L 3.2-4.8 g/dL Current Medications Medications (Trade) Dose Ordered Sig/Debi Route Start Time Stop Time Status Last Admin Sodium Chloride 1,000 ml @ 130 mls/hr Q7H42M ONCE IV 01/25/25 20:45 01/26/25 04:26 01/25/25 23:05 Sodium Chloride 1,000 ml @ 1,000 mls/hr Q1H ONCE IV 01/25/25 20:45 01/25/25 21:44 DC 01/25/25 21:20 Time of 1ST Reevaluation: 20:51 Reevaluation 1ST: Unchanged Patient Education/Counseling: Need For Follow Up Family Education/Counseling: No Family Present SEPSIS Sepsis Screen Date sepsis recognized/suspect: Jan 25, 2025 Time Sepsis recognized/suspect: 1944 Recent Procedure: No On Antibiotic Therapy: No Respiratory Rate >20: No Heart Rate >90: No Temp<36 C (96.8 F) or >38.3 C: No SBP <90 or MAP <65 mmHG: No New Acute Mental Status Change: No Is the patient on CPAP, BIPAP,: No Physician Orders Electrocardigram (01/25/25 20:32) Sodium Chloride 0.9% (01/25/25 20:45) Vital Signs Q1HR (01/25/25 20:42) Saline Lock (01/25/25 20:42) Armor Reconnaissance Specialist (01/25/25 ) Rectal/Core Temps Only (01/25/25 20:42) Notify Md If Abnormal Vs (01/25/25 20:42) Blood Culture (01/25/25 20:42) Chest Xray 1 View (01/25/25 20:42) Head Without Contrast (01/25/25 20:43) Ct Angio Chest Contrast (01/25/25 23:13) Vital Signs Date Time Temp Pulse Resp B/P (MAP) Pulse Ox O2 Delivery O2 Flow Rate FiO2 01/25/25 23:00 99.5 90 14 106/67 (80) 97 99.5 01/25/25 20:45 99.6 107 24 111/70 (84) 96 99.6 01/25/25 20:35 107 24 96 Nasal Cannula* 2 28 01/25/25 20:08 107 01/25/25 20:00 104 01/25/25 19:45 100.7 119 18 124/74 99 100.7 Laboratory Tests Test 01/25/25 20:53 Lactic Acid Level 0.8 mmol/L (0.4-2.0) White Blood Count 5.6 10^3/uL (4.4-10.8) Medications Medications Dose Ordered Sig/Debi Route Start Time Stop Time Status Last Admin Dose Admin Sodium Chloride 1,000 ml @ 130 mls/hr Q7H42M ONCE IV 01/25/25 20:45 01/26/25 04:26 01/25/25 23:05 Sodium Chloride 1,000 ml @ 1,000 mls/hr Q1H ONCE IV 01/25/25 20:45 01/25/25 21:44 DC 01/25/25 21:20 Departure 1 Departure Time of Disposition: 23:15 Impression: Primary Impression: Confusion Additional Impressions: Shortness of breath Tachycardia Disposition: ADMITTED INPATIENT Condition: Stable Critical Care Note Critical Care Time?: No Stability Stability form required: No Heart Score Heart Score: Heart Score Response (Comments) Value History N/A 0 EKG N/A 0 Age N/A 0 Risk Factors N/A 0 Troponin N/A 0 Total 0 I personally scribed for ARLENE TRUJILLO MD ([email or web address]) on 01/25/25 at 20:59. Electronically submitted by Endy Murillo ([facility]). ARLENE TRUJILLO MD Jan 25, 2025 20:59
--- NOTE | 2025-01-26 11:37 | DVHHP2 ---
PATRICK RANKIN PRENATAL TEACHER 01/26/25 0302: History of Present Illness Reason for Visit: Altered mental status History of Present Illness 59-year-old female with past medical history of anxiety, CHF, hypertension, PE, Chronic pain, recent right shoulder surgery presents for sudden onset altered mental status. Patient's family called EMS because she was found to be confused and Slow to respond. When EMS encountered the patient, she was found to be febrile with temperature 100.7, and tachycardic 119. During the emergency department evaluation, patient's mentation has improved but is still very slow to respond. CBC is unremarkable. CMP is unremarkable. D-dimer elevated 3.30. Chest x-ray has no acute cardio pulmonary disease. UA is negative. CTA of the chest negative for acute pulmonary embolism. Right upper extremity in immobilizer. At this time, the patient denies Cough, congestion, recent Sick contacts, shortness of breath, chest pain, palpitations, abdominal pain, dysuria. Cardiovascular: CHF, HTN Psych: Anxiety Smoke: No ALCOHOL: none Drugs: None Lives: with Family Review of Systems Constitutional: Yes: Fever, Weakness, Other (Confused ) Eyes: No: Pain, Vision change, Conjunctivae inflammation, Eyelid inflammation, Other, Redness ENT: No: Ear pain, Ear discharge, Nose pain, Nose discharge, Nose congestion, Mouth pain, Mouth swelling, Throat pain, Throat swelling, Other Respiratory: No: Cough, Dry, Shortness of breath, SOB with excertion, Wheezing, Hemoptysis, Pleuritic Pain, Sputum, Wheezing, Other Cardiovascular: No: Chest Pain, Palpitations, Orthopnea, Paroxysmal Noc. Dyspnea, Edema, Lt Headedness, Other Gastrointestinal: No: Nausea, Vomiting, Abdominal Pain, Diarrhea, Constipation, Melena, Hematochezia, Other Genitourinary: No Dysuria, No Frequency, No Incontinence, No Hematuria, No Retention, No Other Musculoskeletal: shoulder pain; No: other, neck pain, arm pain, back pain, hand pain, leg pain, foot pain Skin: No: Rash, Lesions, Jaundice, Bruising, Other Neurological: Confusion; No: Weakness, Numbness, Incoordination, Change in speech, Seizures, Other Allergies: Coded Allergies: Codeine (Verified Allergy, Severe, RASH, 08/05/14) Meperidine (Verified Allergy, Severe, RASH, 08/07/14) Sulfa Antibiotics (Verified Allergy, Intermediate, RASH, 08/04/15) Propoxyphene (Verified Allergy, Unknown, 02/01/15) Medications Current Medications Medications Dose Ordered Sig/Debi Route Start Time Stop Time Status Last Admin Dose Admin Sodium Chloride 1,000 ml @ 75 mls/hr [id number] IV 01/26/25 01:45 01/26/25 15:04 Docusate Sodium 100 mg BIDPRN PRN PO 01/26/25 01:45 Acetaminophen 650 mg Q6HP PRN PO 01/26/25 01:45 Acetaminophen/ Hydrocodone Bitart 1 tab Q6HP PRN PO 01/26/25 01:45 Ondansetron HCl 4 mg Q4HP PRN IV 01/26/25 01:45 Enoxaparin Sodium 40 mg DAILY SC 01/26/25 10:00 Nitroglycerin 0.4 mg Q5MINP PRN SL 01/26/25 01:45 Morphine Sulfate 2 mg Q30M PRN IV 01/26/25 01:45 Exam Vital Signs Vital Signs Date Time Temp Pulse Resp B/P (MAP) Pulse Ox O2 Delivery O2 Flow Rate FiO2 01/26/25 00:00 85 16 109/69 (82) 95 01/25/25 23:00 99.5 99.5 01/25/25 20:35 Nasal Cannula* 2 28 General Appearance: Alert (Oriented 2/3 ), Cooperative, No acute distress HEENT: Atraumatic, PERRLA, EOMI Respiratory: Clear to auscultation, Normal air movement Cardiovascular: Normal S1, Normal S2 Abdominal: Normal bowel sounds, Soft, No tenderness Extremities: No clubbing, Other (Right upper extremity in the immobilizer ) Neuro: Strength at 5/5 X4 ext Psych/Mental Status: Mood NL, Other (Slow to respond ) Labs/Xrays Labs Test 01/25/25 21:20 01/25/25 20:53 Range/Units Urine Color Yellow Yellow Urine Clarity Clear Clear Urine pH 5.5 5.0-9.0 Urine Specific [place] 1.031 1.001-1.035 Urine Protein Negative Negative Urine Ketones Trace Negative Urine Blood Negative Negative /uL Urine Nitrite Negative Negative Urine Bilirubin Negative Negative Urine Urobilinogen 3 H Negative mg/dL Urine Leukocyte Esterase Negative Negative /uL Urine RBC <1 0 - 4 /hpf Urine Microscopic WBC 1 0-5 /HPF Urine Squamous Epithelial Cells Few <5 /hpf Urine Bacteria None seen None Seen /hpf Urine Mucus Few None Seen Urine Glucose Normal Normal mg/dL Urine Opiates Screen Neg NEGATIVE Urine Fentanyl Screen Pos NEGATIVE Urine Barbiturates Screen Neg NEGATIVE Urine Phencyclidine Screen Neg NEGATIVE Urine Amphetamines Screen Neg NEGATIVE Urine Benzodiazepines Screen Neg NEGATIVE Urine Cocaine Screen Neg NEGATIVE Urine Cannabinoids Screen Neg NEGATIVE White Blood Count 5.6 4.4-10.8 10^3/uL Red Blood Count 3.64 L 4.0-5.20 10^6/uL Hemoglobin 11.4 L 12.2-16.2 g/dL Hematocrit 34.1 L 36.0-46.0 % Mean Corpuscular Volume 93.7 80.0-100.0 fL Mean Corpuscular Hemoglobin 31.4 28.0-32.0 pg Mean Corpuscular Hemoglobin Concent 33.4 32.0-36.0 g/dL Red Cell Distribution Width 13.3 11.8-14.3 % Platelet Count 329 140-450 10^3/uL Mean Platelet Volume 7.9 6.9-10.8 fL Neutrophils (%) (Auto) 76.9 37.0-80.0 % Lymphocytes (%) (Auto) 11.8 10.0-50.0 % Monocytes (%) (Auto) 10.2 0.0-12.0 % Eosinophils (%) (Auto) 0.6 0.0-7.0 % Basophils (%) (Auto) 0.5 0.0-2.0 % Neutrophils # (Auto) 4.3 1.6-8.6 10 ^3/uL Lymphocytes # (Auto) 0.7 0.4-5.4 10 ^3/uL Monocytes # (Auto) 0.6 0-1.3 10 ^3/uL Eosinophils # (Auto) 0 0-0.8 10 ^3/uL Basophils # (Auto) 0 0-0.2 10 ^3/uL Nucleated Red Blood Cells 0.0 % D-Dimer, Quantitative 3.30 H 0.0-0.49 mg/L FEU Sodium Level 141 136-145 mmol/L Potassium Level 3.7 3.5-5.1 mmol/L Chloride Level 110 H 98-107 mmol/L Carbon Dioxide Level 21 20-31 mmol/L Anion Gap 10 5-15 Blood Urea Nitrogen 15 9-23 mg/dL Creatinine 0.49 L 0.550-1.02 mg/dL Glomerular Filtration Rate Calc 107 >90 mL/min BUN/Creatinine Ratio 30.6 H 10.0-20.0 Serum Glucose 105 74-106 mg/dL Lactic Acid Level 0.8 0.4-2.0 mmol/L Calcium Level 8.1 L 8.7-10.4 mg/dL Total Bilirubin 0.2 0.2-1.0 mg/dL Aspartate Amino Transferase (AST) 16 13-40 U/L Alanine Aminotransferase (ALT) 27 7-40 U/L Alkaline Phosphatase 161 H 46-116 U/L Total Protein 5.5 L 5.7-8.2 g/dL Albumin 3.1 L 3.2-4.8 g/dL SEPSIS Sepsis Screen Date sepsis recognized/suspect: Jan 25, 2025 Time Sepsis recognized/suspect: 2034 Recent Procedure: Yes On Antibiotic Therapy: Yes Respiratory Rate >20: Yes Heart Rate >90: Yes Temp<36 C (96.8 F) or >38.3 C: Yes SBP <90 or MAP <65 mmHG: No New Acute Mental Status Change: Yes Is the patient on CPAP, BIPAP,: No Physician Orders Electrocardigram (01/25/25 20:32) Sodium Chloride 0.9% (01/25/25 20:45) Vital Signs Q1HR (01/25/25 20:42) Saline Lock (01/25/25 20:42) Senior Cost Analyst (01/25/25 ) Rectal/Core Temps Only (01/25/25 20:42) Notify Md If Abnormal Vs (01/25/25 20:42) Blood Culture (01/25/25 20:42) Chest Xray 1 View (01/25/25 20:42) Head Without Contrast (01/25/25 20:43) Ct Angio Chest Contrast (01/25/25 23:13) Admit (01/26/25 01:42) Code Status (01/26/25 01:42) Vital Signs .PER UNIT PROTOCOL (01/26/25 01:42) Review Orders With Adm.Md (01/26/25 01:42) Encourage Activity As Tolerate (01/26/25 01:42) Consistent Carb([facility])Diabetes (01/26/25 Breakfast) Sodium Chloride 0.9% (01/26/25 01:45) Oxygen By Face Mask (01/26/25:42) Docusate Sodium Capsule (Colace Capsule) (01/26/25:45) Acetaminophen Tablet (Tylenol Tablet) (01/26/25:45) Notify Md Of Changes From Base (01/26/25:42) Advance Directive (01/26/25:42) Basic Metabolic Panel (01/26/25 05:00) Basic Metabolic Panel (01/27/25 05:00) Basic Metabolic Panel (01/28/25 05:00) Basic Metabolic Panel (01/29/25 05:00) Complete Blood Count (01/26/25 05:00) Complete Blood Count (01/27/25 05:00) Complete Blood Count (01/28/25 05:00) Complete Blood Count (01/29/25 05:00) Patient Condition (01/26/25:42) Allergies (01/26/25:42) Hydrocodone-Acet 5/325mg Tab ([place] /32 (01/26/25 01:45) Ondansetron Hcl (Zofran) (01/26/25:45) Enoxaparin Sodium (Lovenox) (01/26/25 10:00) Sequential Compression Device (01/26/25 ) Nitroglycerin Sublingual (Ntrostat Subli (01/26/25:45) Morphine Sulfate Injection (01/26/25:45) Stat Ekg For Chest Pain (01/26/25:42) Notify Md Of Changes From Base (01/26/25:42) Senior Software Analyst For 24 Hours (01/26/25:42) Emergency Dysrhythmia Protocol (01/26/25:42) Rhythm Strips Once Every Shift (01/26/25:42) Oxygen By Nasal Cannula (01/26/25:42) Bilat Lower Dvt (01/26/25:42) Bi Lat Upper Dvt (01/26/25:42) Piperacillin-Tazob 3.375gm (Zosyn 3.375g (01/26/25 06:00) Covid19 Antigen Sudha (01/26/25 ) Rapid Influenza A&B (01/26/25 01:42) Vital Signs Date Time Temp Pulse Resp B/P (MAP) Pulse Ox O2 Delivery O2 Flow Rate FiO2 01/26/25 00:00 85 16 109/69 (82) 95 01/26/25 00:00 87 01/25/25 23:00 99.5 90 14 106/67 (80) 97 99.5 01/25/25 20:45 99.6 107 24 111/70 (84) 96 99.6 01/25/25 20:35 107 24 96 Nasal Cannula* 2 28 01/25/25 20:08 107 01/25/25 20:00 104 01/25/25 19:45 100.7 119 18 124/74 99 100.7 Laboratory Tests Test 01/25/25 20:53 Lactic Acid Level 0.8 mmol/L (0.4-2.0) White Blood Count 5.6 10^3/uL (4.4-10.8) Medications Medications Dose Ordered Sig/Debi Route Start Time Stop Time Status Last Admin Dose Admin Sodium Chloride 1,000 ml @ 130 mls/hr [id number] ONCE IV 01/25/25 20:45 01/26/25 04:26 01/25/25 23:05 130 MLS/HR Sodium Chloride 1,000 ml @ 1,000 mls/hr Q1H ONCE IV 01/25/25 20:45 01/25/25 21:44 DC 01/25/25 21:20 1,000 MLS/HR Assessment/Plan Assessment/Plan Acute encephalopathy Elevated D Dimer Fever with unknown source S/P right upper extremity arthroplasty Plan Admit to telemetry UDS pending, blood cultures pending, viral swabs (INF / CV) pending, IVF IV ABX, can de-escalate once blood cultures result. CTA chest negative for PE. Bilateral upper / lower extremity venous Doppler to rule out DVTs. GI ppx protonix / DVT ppx lovenox Plan discussed with: Patient My Orders Orders - PATRICK RANKIN NP Procedure Category Date Status Time Admit ADMIT 01/26/25 Transmitted 01:42 Code Status CODE 01/26/25 Transmitted 01:42 Vital Signs LIA 01/26/25 In Process 01:42 Review Orders With LIA 01/26/25 In Process Adm. 01:42 Encourage Activity As LIA 01/26/25 In Process Tolerate 01:42 Consistent DIET 01/26/25 Transmitted Carb(Ccho)Diabetes Breakfast Sodium Chloride 0.9% PHA 01/26/25 In Process 01:45 Oxygen By Face Mask RT 01/26/25 Transmitted 01:42 Docusate Sodium PHA 01/26/25 In Process Capsule (Colace 01:45 Acetaminophen Tablet PHA 01/26/25 In Process (Tylenol Tablet) 01:45 Notify Of Changes [facility] 01/26/25 In Process From Base 01:42 Advance Directive [facility] 01/26/25 In Process 01:42 Basic Metabolic Panel LAB 01/26/25 Logged 05:00 Basic Metabolic Panel LAB 01/27/25 Verified 05:00 Basic Metabolic Panel LAB 01/28/25 Verified 05:00 Basic Metabolic Panel LAB 01/29/25 Verified 05:00 Complete Blood Count LAB 01/26/25 Logged 05:00 Complete Blood Count LAB 01/27/25 Verified 05:00 Complete Blood Count LAB 01/28/25 Verified 05:00 Complete Blood Count LAB 01/29/25 Verified 05:00 Patient Condition ORDERS 01/26/25 Transmitted 01:[address] [facility] 01/26/25 In Process 01:42 Hydrocodone-Acet PHA 01/26/25 In Process 5/325mg Tab ([place] 01:45 Ondansetron Hcl PHA 01/26/25 In Process (Zofran) 01:45 Enoxaparin Sodium [facility] 01/26/25 In Process (Lovenox) 10:[address] [facility] 01/26/25 In Process Compression Device Nitroglycerin [facility] 01/26/25 In Process Sublingual (Ntrostat 01:45 Morphine Sulfate PHA 01/26/25 In Process Injection 01:45 Stat Ekg For Chest [facility] 01/26/25 In Process Pain 01:42 Notify Md Of Changes [facility] 01/26/25 In Process From Base 01:42 Senior Software Analyst For [facility] 01/26/25 In Process 24 Hours 01:42 Emergency Dysrhythmia [facility] 01/26/25 In Process Protocol 01:42 Rhythm Strips Once [facility] 01/26/25 In Process Every Shift 01:42 Oxygen By Nasal RT 01/26/25 Transmitted Cannula 01:42 Bilat Lower Dvt US 01/26/25 Resulted 01:42 Bi Lat Upper Dvt US 01/26/25 Resulted 01:42 Piperacillin-Tazob PHA 01/26/25 In Process 3.375gm (Zosyn 3.375g 06:00 Covid19 Antigen Sudha LAB 01/26/25 Logged Rapid Influenza A&B LAB 01/26/25 Logged 01:42 Date of Service: Jan 26, 2025 Billing Provider: TRU PEREZ MD Common Visit Codes: NOT BILLABLE TRU PEREZ MD 01/26/25 1431: Review of Systems Allergies: Coded Allergies: Codeine (Verified Allergy, Severe, RASH, 08/05/14) Meperidine (Verified Allergy, Severe, RASH, 08/07/14) Sulfa Antibiotics (Verified Allergy, Intermediate, RASH, 08/04/15) Propoxyphene (Verified Allergy, Unknown, 02/01/15) Additional Comments Additional Comments Additional Comments Patient is seen and evaluated by me earlier today. Patient is seen evaluated and admitted by nurse practitioner unit control worker. I agree with his evaluation, documentation, assessment and care plan as outlined. PATRICK RANKIN NP Jan 26, 2025 03:02 TRU PEREZ MD Jan 26, 2025 14:31
[2025-01-26] MEDS ORDERED: GABA600T PO (12:14)
[2025-01-26] MEDS ORDERED: OXY5T GT (12:14)
[2025-01-26] MEDS ORDERED: DICL50TA2 PO (12:14)
--- NOTE | 2025-01-26 15:01 | DVHDS2 ---
Discharge Summary Date of Admission Jan 26, 2025 at 01:42 Date of Discharge: Jan 26, 2025 Labs/Diagnostic Data: Laboratory Results Test 01/26/25 04:40 01/26/25 03:50 01/25/25 21:20 01/25/25 20:53 Influenza Type A Antigen Negative (Negative) Influenza Type B Antigen Negative (Negative) SARS-CoV-2 Antigen (Rapid) Negative (NEGATIVE) White Blood Count 5.9 10^3/uL (4.4-10.8) Red Blood Count 3.70 10^6/uL (4.0-5.20) Hemoglobin 11.4 g/dL (12.2-16.2) Hematocrit 34.4 % (36.0-46.0) Mean Corpuscular Volume 93.0 fL (80.0-100.0) Mean Corpuscular Hemoglobin 30.9 pg (28.0-32.0) Mean Corpuscular Hemoglobin Concent 33.3 g/dL (32.0-36.0) Red Cell Distribution Width 13.2 % (11.8-14.3) Platelet Count 266 10^3/uL (140-450) Mean Platelet Volume 8.2 fL (6.9-10.8) Neutrophils (%) (Auto) % (37.0-80.0) Lymphocytes (%) (Auto) % (10.0-50.0) Monocytes (%) (Auto) % (0.0-12.0) Basophils (%) (Auto) % (0.0-2.0) Neutrophils # (Auto) 10 ^3/uL (1.6-8.6) Lymphocytes # (Auto) 10 ^3/uL (0.4-5.4) Monocytes # (Auto) 10 ^3/uL (0-1.3) Differential Total Cells Counted 100.0 (100) Neutrophils % (Manual) 49 (37.0-80.0) Band Neutrophils % (Manual) 0 Lymphocytes % (Manual) 26 (10.0-50.0) Monocytes % (Manual) 19 (0-12) Eosinophils % (Manual) 5 (0-7) Basophils % (Manual) 0 (0.0-2.0) Metamyelocytes % (manual) 0 Myelocytes % (Manual) 0 Promyelocytes % (Manual) 0 Blast Cells % (Manual) 0 Reactive Lymphocytes 1 Platelet Estimate Adequate Sodium Level 142 mmol/L (136-145) Potassium Level 3.6 mmol/L (3.5-5.1) Chloride Level 111 mmol/L (98-107) Carbon Dioxide Level 21 mmol/L (20-31) Anion Gap 10 (5-15) Blood Urea Nitrogen 14 mg/dL (9-23) Creatinine 0.47 mg/dL (0.550-1.02) Glomerular Filtration Rate Calc 108 mL/min (>90) BUN/Creatinine Ratio 29.8 (10.0-20.0) Serum Glucose 85 mg/dL (74-106) Calcium Level 8.4 mg/dL (8.7-10.4) Urine Color Yellow (Yellow) Urine Clarity Clear (Clear) Urine pH 5.5 (5.0-9.0) Urine Specific [place] 1.031 (1.001-1.035) Urine Protein Negative (Negative) Urine Ketones Trace (Negative) Urine Blood Negative /uL (Negative) Urine Nitrite Negative (Negative) Urine Bilirubin Negative (Negative) Urine Urobilinogen 3 mg/dL (Negative) Urine Leukocyte Esterase Negative /uL (Negative) Urine RBC <1 /hpf (0 - 4) Urine Microscopic WBC 1 /HPF (0-5) Urine Squamous Epithelial Cells Few /hpf (<5) Urine Bacteria None seen /hpf (None Seen) Urine Mucus Few (None Seen) Urine Glucose Normal mg/dL (Normal) Urine Opiates Screen Neg (NEGATIVE) Urine Fentanyl Screen Pos (NEGATIVE) Urine Barbiturates Screen Neg (NEGATIVE) Urine Phencyclidine Screen Neg (NEGATIVE) Urine Amphetamines Screen Neg (NEGATIVE) Urine Benzodiazepines Screen Neg (NEGATIVE) Urine Cocaine Screen Neg (NEGATIVE) Urine Cannabinoids Screen Neg (NEGATIVE) Eosinophils (%) (Auto) 0.6 % (0.0-7.0) Eosinophils # (Auto) 0 10 ^3/uL (0-0.8) Basophils # (Auto) 0 10 ^3/uL (0-0.2) Nucleated Red Blood Cells 0.0 % D-Dimer, Quantitative 3.30 mg/L FEU (0.0-0.49) Lactic Acid Level 0.8 mmol/L (0.4-2.0) Total Bilirubin 0.2 mg/dL (0.2-1.0) Aspartate Amino Transferase (AST) 16 U/L (13-40) Alanine Aminotransferase (ALT) 27 U/L (7-40) Alkaline Phosphatase 161 U/L (46-116) Total Protein 5.5 g/dL (5.7-8.2) Albumin 3.1 g/dL (3.2-4.8) Other Laboratory Tests 01/26/25 03:50 Brief Hx & Hospital Course: 59-year-old female with past medical history of anxiety, CHF, hypertension, PE, Chronic pain, recent right shoulder surgery presents for sudden onset altered mental status. Patient's family called EMS because she was found to be confused and Slow to respond. When EMS encountered the patient, she was found to be febrile with temperature 100.7, and tachycardic 119. During the emergency department evaluation, patient's mentation has improved but is still very slow to respond. CBC is unremarkable. CMP is unremarkable. D-dimer elevated 3.30. Chest x-ray has no acute cardio pulmonary disease. UA is negative. CTA of the chest negative for acute pulmonary embolism. Right upper extremity in immobilizer. At this time, the patient denies Cough, congestion, recent Sick contacts, shortness of breath, chest pain, palpitations, abdominal pain, dysuria. She is observed in the hospital. Her workup is unremarkable. She remained afebrile all day from 6:00 a.m. today. She is feeling better and requesting to go home. I have educated the patient regarding narcotic use and felt her confusion possibly related to oxycodone/fentanyl narcotic. She is advised to cut down and use as needed for severe pain. Patient had a recent right shoulder surgery. Surgical site appears clean without any erythema edema or any suggestion of infection. Patient's CT chest did show some fluid collection felt possible postop in nature. Patient is already taking Keflex at home postop and she is advised to continue antibiotic till she follows up with the orthopedic surgeon. Patient verbalized understanding of this, verbalized understanding over hospital diagnosis, treatment he received, discharge medications and agree with the follow-up plan of care as mentioned. Condition at Discharge: Stable Final Diagnosis/Problems List Encephalopathy felt secondary to narcotics now resolved Discharge Disposition: Home Discharge Instruct/Medications Diet: Consistent carbohydrate, Cardiac 2g Na,low cholest Activity: No Restrictions, As Tolerated Follow Up/Referral: With your orthopedic surgeon next week as your scheduled. Medications: Home medications except fentanyl Scheduled Alendronate Sodium (Alendronate Sodium), 70 MG PO QWEEKLY, (Reported) Calcium Carbonate (Calcium 600), 600 MG PO DAILY, (Reported) Cholecalciferol (Vitamin D3), 2,000 UNIT PO DAILY, (Reported) Cyclobenzaprine Hcl (Cyclobenzaprine Hcl), 10 MG PO BID, (Reported) Diclofenac Potassium (Diclofenac Potassium), 1 TAB PO TIDP, (Reported) Doxycycline (Monohydrate) (Doxycycline), 100 MG PO BID Fentanyl (Fentanyl), 25 MCG TD Q72HR, (Reported) Ferrous Sulfate (Ferrous Sulfate), 325 MG PO TID Gabapentin (Gabapentin), 800 MG PO TID, (Reported) Gabapentin (Neurontin), 1 TAB PO TID, (Reported) Magnesium Oxide (Magnesium Oxide), 1 TAB PO DAILY Oxycodone W/ Acetaminophen (Percocet 5/325MG), 1 TAB PO QID, (Reported) Oxycodone W/ Acetaminophen (Percocet 5/325MG), 1 TAB PO QID, (Reported) Spironolactone (Spironolactone), 100 MG PO BID, (Reported) Topiramate (Topamax), 1 TAB PO BID, (Reported) [Omeprazole], 20 MG PO DAILY, (Reported) Miscellaneous Medications Oxycodone Hcl (Oxycodone Hcl), 5 MG GT, (Reported) Discontinued Medications Diclofenac Sodium (Topical) (Gnp Arthritis Pain), 2 % EX BID, (Reported) Discharge Statement: "Patient was advised to return to the ER or call 911 if any headaches, dizziness, shortness of breath, chest pain, abdominal pain, bleeding, fevers, or worsening of medical condition. Patient was counseled about treatment plan, medications, possible side effects, patientverbalized understanding. All questions were answered to the best of my ability. This discharge took greater then 30 minutes in planning, reviewing documentation, counseling the patient, and discussing with other team members." ASSESSMENT ASSESSMENT Assessment Encephalopathy felt secondary to narcotics now resolved TRU PEREZ MD Jan 26, 2025 15:01
== END 2025-01-26 19:55 | disposition home or self-care (01) | DRG 93 ==
LOC: EDBD 19:45 → ER 19:48 → OVERFLOW 01-26 01:42 → TELE-WESTW 01-26 09:32
PROVIDERS: ADMIT Hospitalist; ATTEND Hospitalist
DX: G92.8 Other toxic encephalopathy (principal); F41.9 Anxiety disorder, unspecified; G89.4 Chronic pain syndrome; T40.605A Adverse effect of unspecified narcotics, initial encounter; I11.0 Hypertensive heart disease with heart failure; I50.9 Heart failure, unspecified; Z88.5 Allergy status to narcotic agent; Z88.2 Allergy status to sulfonamides; Z79.899 Other long term (current) drug therapy; Z90.49 Acquired absence of other specified parts of digestive tract; Y92.89 Other specified places as the place of occurrence of the external cause
CPT/HCPCS: 36415; 70450; 71045; 71275; 80048; 80053; 80307; 81001; 83605; 85007; 85025; 85027; 85379; 87040; 87081; 87426; 87804; 93005; 93970; 96361; 96374; G0378; J2543; J3490